=== PATIENT | female | born 1945 | race Caucasian/White ===

== ENCOUNTER 2016-09-26 19:17 | Inpatient (IN) | payer OTHER, MEDICAID ==
[~2016-09-26] VITALS: Ht 167.6 cm; Wt 127.3 kg
[~2016-09-26 19:17] MED LIST: ALLO100T PO; ASPI-664 PO; CARI350T29 PO; CARV6.2579 PO; CHOL2000 PO; CLON0.5T4 PO; FURO20TA3 PO; GEMF600T60 PO; GLYB5TAB3 PO; HYDR-762 PO; HYDR10TA36 PO; LEVO175T38 PO; LISI20TA11 PO; MULT-552 PO; OMEP20CA16 PO; PIOG15TA4 PO; SERT-165 PO
[2016-09-26] MEDS ORDERED: SOD CHLORIDE 0.9% 1,000 ML IV STA (19:57)
[2016-09-26] MEDS ORDERED: ONDANSETRON 4 MG INJ IV STA (19:57)
[2016-09-26] MEDS ORDERED: morphine 2 MG INJ IV STA (19:57)
[2016-09-26 20:22] LABS: ADD SCAN DIFF NO
[2016-09-26 20:26] LABS: BASOPHILS % 0.4 % (0.0-2.0); EOSINOPHILS # 0.4 10^3/ul (0.0-0.5); EOSINOPHILS % 5.1 % (0.0-7.0); HEMATOCRIT 33.9 % (37.0-47.0); LYMPHOCYTES # 1.3 10^3/ul (0.8-2.9); LYMPHOCYTES % 17.9 % (15.0-51.0); MEAN CORPUSCULAR HEMOGLOBIN 29.4 pg (29.0-33.0); MEAN CORPUSCULAR HGB CONC 32.4 g/dl (32.0-37.0); MEAN CORPUSCULAR VOLUME 90.6 fl (82.0-101.0); MEAN PLATELET VOLUME 10.8 fl (7.4-10.4); MONOCYTE # 0.6 10^3/ul (0.3-0.9); MONOCYTES % 8.2 % (0.0-11.0); NEUTROPHIL # 4.9 10^3/ul (1.6-7.5); NEUTROPHILS % 68.3 % (39.0-77.0); PLATELET COUNT 199 10^3/UL (140-415); RED BLOOD COUNT 3.74 10^6/ul (4.20-5.40); RED CELL DISTRIBUTION WIDTH 14.2 % (11.5-14.5); WHITE BLOOD COUNT 7.1 10^3/ul (4.8-10.8)
[2016-09-26 20:37] LABS: ALANINE AMINOTRANSFERASE 20 IU/L (13-69); ALBUMIN 3.7 g/dl (3.3-4.9); ALBUMIN/GLOBULIN RATIO 1.19; ALKALINE PHOSPHATASE 105 IU/L (42-121); ANION GAP 18 (8-16); ASPARTATE AMINO TRANSFERASE 15 IU/L (15-46); BLOOD UREA NITROGEN 103 mg/dl (7-20); CALCIUM 8.7 mg/dl (8.4-10.2); CARBON DIOXIDE 23 mmol/L (21-31); CHLORIDE 94 mmol/L (97-110); CREATININE 6.65 mg/dl (0.44-1.00); POTASSIUM 5.8 mmol/L (3.5-5.1); SODIUM 129 mmol/L (135-144); TOTAL PROTEIN 6.8 g/dl (6.1-8.1)
[2016-09-26 20:47] LABS: GLUCOSE 481 mg/dl (70-220)
[2016-09-26 20:57] LABS: TROPONIN-I < 0.012 ng/ml (0.00-0.12)
[2016-09-26] MEDS ORDERED: INSULIN LISPRO 100 UNIT/ML VIAL SC STA (21:12)
[2016-09-26 21:29] LABS: ADD UMIC YES; URINE BILIRUBIN (Dip) NEGATIVE (NEGATIVE); URINE BLOOD (Dip) 1+ (NEGATIVE); URINE COLOR LT. YELLOW (YELLOW); URINE KETONES (Dip) NEGATIVE (NEGATIVE); URINE LEUKOCYTE ESTERASE (Dip) 3+ (NEGATIVE); URINE NITRITE (Dip) NEGATIVE (NEGATIVE); URINE TOTAL PROTEIN (Dip) 2+ (NEGATIVE); URINE UROBILINOGEN (Dip) 0.2 E.U./dL (0.1-1.0)
[2016-09-26] MEDS ORDERED: SOD CHLORIDE 0.9% 1,000 ML IV ONE (21:30)
--- NOTE | 2016-09-26 21:37 | RADRPT ---
PROCEDURE: CT brain without contrast CLINICAL INDICATION: Dizziness. Headaches TECHNIQUE: A CT of the brain was performed on a GE [address] scanner utilizing axial sections fr om the skull base through the vertex without contrast. The exam CDTIvol = 42.58 mGy and DLP = 813. 64 mGy-cm. COMPARISON: CT and MRI exam 12/23/2015 FINDINGS: Linear hyperdense area within the left sylvian fissure presumably in a branch of the left middle cer ebral artery is again noted, less extensive than on the previous study. Areas of hypodensity consis tent with encephalomalacia in the left insular region and left temporal lobe correlate with the prev iously seen ischemic infarct. No acute intracranial hemorrhage is identified. There is no mass eff ect or midline shift. No extra-axial fluid collection is seen. The ventricles and sulci are mildly enlarged, compatible with generalized volume loss. There are mild areas of decreased attenuation in the periventricular and deep white matter, suggestive of chronic small vessel ischemic changes. Gr ay-white differentiation is preserved. No density alteration in the kat or cerebellum is identifie d the fourth ventricle is midline. Atherosclerotic calcifications of the proximal intracranial maximino gavino are noted. The osseous structures are unremarkable. The mastoid air cells and visualized paranasal sinuses are clear. RPTAT:HJJR IMPRESSION: 1. No evidence for acute intracranial abnormality or mass effect. 2. 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 3. Hyperdensity within the left sylvian fissure presumably chronic left middle cerebral artery intr a-arterial thrombus is again noted, less extensive than on the previous exam of 12/23/2015. Physician Ranjana Date Time Electronically viewed and signed by Physician Ranjana on 09/26/2016 21:36 /
[2016-09-26 21:39] LABS: BACTERIA,URINE MODERATE
[2016-09-26] MEDS ORDERED: DOCU-159 PO (22:15)
[2016-09-26] MEDS ORDERED: HYDR-3670 PO (22:16)
[2016-09-26] MEDS ORDERED: NOVO3I SC (22:24)
[2016-09-26] MEDS ORDERED: LEVEM SC (22:27)
[2016-09-26] MEDS ORDERED: FURO40TA4 PO (22:28)
[2016-09-26] MEDS ORDERED: ATOR80TA75 PO (22:29)
[2016-09-26] MEDS ORDERED: MULT1CAP27 PO (22:31)
[2016-09-26] MEDS ORDERED: NITR0.4T6 SL (22:32)
[2016-09-26] MEDS ORDERED: PANT40TA4 PO (22:34)
[2016-09-26] MEDS ORDERED: TIOT18CA INHALATION (22:35)
[2016-09-26] MEDS ORDERED: BUDE6HFA INHALATION (22:36)
[2016-09-26] MEDS ORDERED: ACET325T45 PO (22:37)
[2016-09-26] MEDS ORDERED: ASCO-219 PO (22:38)
[2016-09-26] MEDS ORDERED: NA POLYST SULFON 15 GM/60 ML BTL PO ONE (23:00)
--- NOTE | 2016-09-26 23:59 | ERD ---
ER Documentation Chief Complaint Date/Time DATE: 09/26/16 TIME: 23:48 Chief Complaint MASSIMO RA c/o dizziness X3 days,diarrhea started today,abd pain HPI 71-year-old female presents emergency room with increasing dizziness for 3 days as well as some diarrhea and abdominal pain. She denies any fevers and chills. Denies chest pain and shortness of breath. There is nonbloody. The dizziness is described as a lightheadedness ROS All systems reviewed and are negative except as per history of present illness. Medications Home Meds Active Scripts Carvedilol* (Carvedilol*) 6.25 Mg Tablet, 6.25 MG PO BID for 30 Days, TAB Prov:DWAINE BLACK 11/17/15 Reported Medications Ascorbic Acid (C-500) 500 Mg Tablet, 500 MG PO BID for WOUND MANAGEMENT, TAB 09/26/16 Acetaminophen* (Acetaminophen*) 325 Mg Tablet, 325 MG PO Q4H Y for PAIN AND OR ELEVATED TEMP, #30 TAB 09/26/16 Budesonide-Formoterol Fumarate* (Symbicort*) 160-4.5 Hfa.aer.ad, 1 PUFF INHALATION BID, #1 EACH 09/26/16 Tiotropium [place]* (Spiriva*) 18 Mcg Cap.w.dev, 1 CAP INHALATION DAILY, #30 CAP 09/26/16 Pantoprazole* (Pantoprazole*) 40 Mg Tablet.dr, 40 MG PO AC BREAKFAST, TAB 09/26/16 Nitroglycerin* (Nitroglycerin* SL) 0.4 Mg Tab.subl, 0.4 MG SL Q5MIN Y for CHEST PAIN, BOTTLE 09/26/16 Multivitamin with Minerals (Myvitalife) 1 Each Capsule, 1 EACH PO, CAP 09/26/16 Atorvastatin* (Atorvastatin*) 80 Mg Tablet, 80 MG PO QHS for HYPERLIPIDEMIA, # 30 TAB 09/26/16 Furosemide* (Furosemide*) 40 Mg Tablet, 40 MG PO DAILY for CHF, TAB 09/26/16 Insulin Detemir (Levemir) 100 Unit/1 Ml Vial, 30 UNIT SC DAILY, VIAL 09/26/16 Insulin Aspart* (Novolog Insulin Pen*) 100 Unit/Ml Soln, 0 SC .SLIDING SCALE AC , EA 150-199=2 UNITS;200-249=3 UNITS;250-299=5 UNITS; 300-349= 7 UNITS ABOVE 349=10UNITS CALL MD IF BS <60 OR >400 subcutaneosly before meals and at bedtime related to TYPE 2 DIABETES MELLIYUS WITHOUT COMPLICATIONS (E11.9) FSBS CHECK AC MEALSAND HS 09/26/16 Hydralazine Hcl* (Hydralazine Hcl*) 10 Mg Tablet, 10 MG PO Q8 for HYPERTENSION, #90 TAB 09/26/16 Docusate Sodium* (Docusate Sodium*) 100 Mg Capsule, 100 MG PO BID for CONSTIPATION, #60 CAP 09/26/16 Cholecalciferol* (Vitamin D3*) 2,000 Unit Cap, 2000 UNIT PO DAILY, CAP 12/23/15 Allopurinol* (Allopurinol*) 100 Mg Tablet, 100 MG PO DAILY, TAB 12/23/15 Sertraline Hcl* (Sertraline Hcl*) 100 Mg Tablet, 100 MG PO DAILY, #30 TAB 12/23/15 Lisinopril* (Lisinopril*) 20 Mg Tablet, 20 MG PO DAILY, #30 TAB 12/23/15 Hydrocodone Bit-Acetaminophen* ([place]*) 10-325 Mg Tablet, 1 TAB PO TID Y for PAIN, TAB 12/23/15 Aspirin (Aspirin) 81 Mg Tablet.dr, 81 MG PO DAILY 05/07/13 Omeprazole* (Omeprazole*) 20 Mg Capsule.dr, 20 MG PO DAILY 05/07/13 Discontinued Reported Medications Multivitamins* (Once Daily*) 1 Tab Tablet, 1 TAB PO DAILY, TAB 12/23/15 Glyburide* (Glyburide*) 5 Mg Tablet, 5 MG PO BID, #60 TAB 12/23/15 Levothyroxine Sodium* (Levoxyl*) 175 Mcg Tablet, 175 MCG PO BEFORE BREAKFAST, # 30 TAB 12/23/15 Clonazepam* (Clonazepam*) 0.5 Mg Tablet, 0.5 MG PO BID, TAB 12/23/15 Gemfibrozil* (Gemfibrozil*) 600 Mg Tablet, 600 MG PO DAILY, TAB 12/23/15 Carisoprodol* (Carisoprodol*) 350 Mg Tablet, 350 MG PO Q8 Y for MUSCLE SPASMS, TAB 12/23/15 Pioglitazone Hcl* (Actos*) 15 Mg Tablet, 15 MG PO DAILY 05/07/13 Discontinued Scripts Hydralazine Hcl* (Apresoline*) 10 Mg Tab, 10 MG PO BID for 30 Days, TAB Prov:DWAINE BLACK 11/17/15 Furosemide* (Furosemide*) 20 Mg Tablet, 20 MG PO DAILY for 30 Days, TAB Prov:DWAINE BLACK 11/17/15 Allergies Allergies: Coded Allergies: No Known Drug Allergy (Verified Allergy, Unknown, 09/26/16) PMhx/Soc History of Surgery: Yes (CATARACT SG, .) Anesthesia Reaction: No Hx 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 Disorder: No Hx Respiratory Disorders: Yes (COPD, emphysema) Hx Cardiac Disorders: Yes (CHF) Hx Psychiatric Problems: Yes (depression) Hx Miscellaneous Medical Probl: Yes (MORBIDLY OBESE,diabetes) Hx Alcohol Use: Yes (one can/ month) Hx Substance Use: No Hx Tobacco Use: Yes (2 packs/day) Smoking Status: Current every day smoker Physical Exam Vitals Vital Signs Date Time Temp Pulse Resp B/P Pulse Ox O2 Delivery O2 Flow Rate FiO2 09/26/16 22:26 64 26 119/46 100 Nasal Cannula 3.0 09/26/16 21:00 68 26 115/102 96 Nasal Cannula 3.0 09/26/16 19:33 77 21 99/41 99 Room Air 09/26/16 19:27 97.7 76 18 97/52 99 Physical Exam Const: [] No acute distress Head: Atraumatic Eyes: Normal Conjunctiva ENT: Normal External Ears, Nose and Mouth. Neck: Full range of motion..~ No meningismus. Resp: Clear to auscultation bilaterally Cardio: Regular rate and rhythm, no murmurs Abd: Soft, mild generalized abdominal pain, non distended. Normal bowel sounds Skin: No petechiae or rashes Back: No midline or flank tenderness Ext: No cyanosis, or edema Neur: Awake and alert and oriented 3, no focal deficits. Psych: Normal Mood and Affect Result Diagram: 09/26/16201409/26/162014 Results 24 hrs Laboratory Tests Test 09/26/16 20:15 09/26/16 21:15 White Blood Count 7.110^3/ul Red Blood Count 3.7410^6/ul Hemoglobin 11.0g/dl Hematocrit 33.9% Mean Corpuscular Volume 90.6fl Mean Corpuscular Hemoglobin 29.4pg Mean Corpuscular Hemoglobin Concent 32.4g/dl Red Cell Distribution Width 14.2% Platelet Count 56336^3/UL Mean Platelet Volume 10.8fl Neutrophils % 68.3% Lymphocytes % 17.9% Monocytes % 8.2% Eosinophils % 5.1% Basophils % 0.4% Nucleated Red Blood Cells % 0.0/100WBC Neutrophils # 4.910^3/ul Lymphocytes # 1.310^3/ul Monocytes # 0.610^3/ul Eosinophils # 0.410^3/ul Basophils # 0.010^3/ul Nucleated Red Blood Cells # 0.010^3/ul Sodium Level 129mmol/L Potassium Level 5.8mmol/L Chloride Level 94mmol/L Carbon Dioxide Level 23mmol/L Anion Gap 18 Blood Urea Nitrogen 103mg/dl Creatinine 6.65mg/dl Glucose Level 481mg/dl Calcium Level 8.7mg/dl Total Bilirubin 0.0mg/dl Direct Bilirubin 0.00mg/dl Indirect Bilirubin 0.0mg/dl Aspartate Amino Transf (AST/SGOT) 15IU/L Alanine Aminotransferase (ALT/SGPT) 20IU/L Alkaline Phosphatase 105IU/L Troponin I < 0.012ng/ml Total Protein 6.8g/dl Albumin 3.7g/dl Globulin 3.10g/dl Albumin/Globulin Ratio 1.19 Lipase 81U/L Urine Color LT. YELLOW Urine Clarity TURBID Urine pH 5.0 Urine Specific [place] 1.015 Urine Ketones NEGATIVE Urine Nitrite NEGATIVE Urine Bilirubin NEGATIVE Urine Urobilinogen 0.2 E.U./dL Urine Leukocyte Esterase 3+ Urine Microscopic RBC 5-10/HPF Urine Microscopic WBC >200/HPF Urine Epithelial Cells FEW Urine Bacteria MODERATE Urine Hemoglobin 1+ Urine Glucose 0.1%% Urine Total Protein 2+ Current Medications Medications (Trade) Dose Ordered Sig/Marcie Route PRN Reason Start Time Stop Time Status Last Admin Dose Admin Sodium Chloride (NS) 1,000 ml @ 1,000 mls/hr Q1H STAT IV 09/26/16 19:57 09/26/16 20:56 DC 09/26/16 20:31 Morphine Sulfate (morphine) 2 mg ONCE STAT IV 09/26/16 19:57 09/26/16 19:58 DC 09/26/16 20:32 Ondansetron HCl 4 mg 4 mg ONCE STAT IV 09/26/16 19:57 09/26/16 19:58 DC 09/26/16 20:31 Sodium Chloride (NS) 1,000 ml @ 1,000 mls/hr Q1H ONCE IV 09/26/16 21:30 09/26/16 21:30 DC Insulin Human Lispro (Humalog) 6 unit ONCE STAT SC 09/26/16 21:12 09/26/16 21:18 DC 09/26/16 21:32 Sodium Polystyrene Sulfonate (Kayexalate) 30 gm ONCE ONCE PO 09/26/16 23:00 09/26/16 23:01 DC Procedures/MDM Acute uremia with acute kidney injury and pyelonephritis.. She has a very high BUN of 100. Also has some hyperkalemia without any EKG changes. Denies any GI bleed. After initial history taken she stated that she forgot to mention that she had a headache., Because her coming dizziness ordered a head CT which was negative for any acute process. She'll need to be admitted for nephrology evaluation and likely dialysis very soon although the need is not emergent currently. Also has a very high blood sugar was treated with a normal saline as well as lispro insulin subcutaneously. She has hyperkalemia with no EKG changes was given Kayexalate. Pain is treated with morphine and worked well. Patient was capitated to [facility] although and informed her that she would be transferred she said that she refuses. Registration is talking with an chance , and will get back to the patient. Signing out her final disposition and she made a being admitted to this hospital which case the oncoming physician will make the call to the hospitalist. Otherwise she will be admitted. EKG interpretation: No sinus rhythm rate of 60, normal axis, no ST-T wave changes concerning for acute ischemia, low voltage, single PVC, normal intervals. Departure Diagnosis: Primary Impression: Acute kidney injury Additional Impressions: Acute uremia Headache Abdominal pain Complicated UTI (urinary tract infection) Hyperglycemia due to type 2 diabetes mellitus Anemia Condition: Serious RADHIKA RUIZ DO Sep 26, 2016 23:59
[2016-09-27] VITALS (9 sets, daily range): BP systolic 78–106; BP diastolic 41–51; PULSE 56–67; RESP 14–18; TEMP 98; Ht 167.6 cm; Wt 127.3 kg
[2016-09-27] MEDS ORDERED: SOD CHLORIDE 0.9% 1,000 ML IV ONE
[2016-09-27] MEDS ORDERED: CEFEPIME 1GM/50 ML (PMX) 50 ML IVPB ONE
--- NOTE | 2016-09-27 01:42 | EN ---
Date/Time of Note Date/Time of Note DATE: 09/27/16 TIME: 01:41 ER Progress Note Discuss case with IPA physician Dr. Richard. Her on-call physician, recommended admitting patient to panel physician at [facility]. Hospitalist made aware. INNA ARAGON Sep 27, 2016 01:42
--- NOTE | 2016-09-27 03:12 | HP ---
Date/Time of Note Date/Time of Note DATE: 09/27/16 TIME: 03:12 Assessment/Plan VTE Prophylaxis VTE Prophylaxis Intervention: heparin Lines/Catheters Urinary Cath still in place: Yes Reason Cath still needed: urinary retention, other (indicate) (Acute Kidney Injury with Acute Uremia) Assessment/Plan Assessment/Plan 1) Acute kidney injury, Cr 7 - Admit to Med/Surg - CONSULT: Nephrology - Dr. Messina - Dialysis suspected. 2) Acute uremia, BUN 103, 3) Complicated UTI (urinary tract infection) - IV Antibiotics - Await Urine Culture 4) Abdominal pain and diarrhea today, possibly due to UTI - Treat as above 5) Hyperglycemia due to type 2 diabetes mellitus - Diabetic Diet/Renal - Accu Chek AC and HS - Mild Insulin Sliding Scale 6) Hyperkalemia - Treated with Kayexalate in the ED 7) Anemia, Normochromic, Normocytic, Hgb = 11 8) Headache - Tylenol prn HPI/ROS Admit Date/Time Admit Date/Time 09/27/16 0139 Hx of Present Illness 71-year-old female presents emergency room, via ambulance, with increasing dizziness for 3 days as well as some diarrhea and abdominal pain today. No melena or hematochezia. She denies any fevers and chills. Denies chest pain and shortness of breath. There is nonbloody. The dizziness is described as a lightheadedness ER Course per ER Physician: Acute uremia with acute kidney injury and pyelonephritis.. She has a very high BUN of 100. Also has some hyperkalemia without any EKG changes. Denies any GI bleed. After initial history taken she stated that she forgot to mention that she had a headache., Because her coming dizziness ordered a head CT which was negative for any acute process. She'll need to be admitted for nephrology evaluation and likely dialysis very soon although the need is not emergent currently. Also has a very high blood sugar was treated with a normal saline as well as lispro insulin subcutaneously. She has hyperkalemia with no EKG changes was given Kayexalate. Pain is treated with morphine and worked well. Patient was capitated to [facility] although and informed her that she would be transferred she said that she refuses. Registration is talking with an chance, and will get back to the patient. Signing out her final disposition and she made a being admitted to this hospital which case the oncoming physician will make the call to the hospitalist. Otherwise she will be admitted. ROS General: Admits: Denies: Fever, Chills, Poor Appetite, Generalized Body Aches Eyes: Admits: Denies: Blurry Vision, Double Vision HENT: Admits: Denies: Ear Pain/Pressure, Runny/Stuffy Nose, Sore Throat Cardiovascular: Admits: Denies: Chest Pain, Palpitations, Leg Swelling Pulmonary: Admits: Denies: Cough, Wheeze, Shortness of Breath Gastrointestinal: Admits: Abdominal Pain, Diarrhea Denies: Nausea, Vomiting, Blood in Stool, Black- Colored Stool Urogenital: Admits: Denies: Burning with Urination, Urinary Frequency, Blood in Urine Musculoskeletal: Admits: Denies: Joint Pain, Joint Swelling, Muscle Pain 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: Admits: Headache, mild, Dizziness, Denies: Numbness, Tingling, Shooting Pains Integumentary: Admits: Denies: Rash, Itch PMH/Family/Social Past Medical History COPD; Emphysema; CHF; Depression; Morbid Obesity; Diabetes Past Surgical History CATARACT SG, Anesthesia Reaction: No Hx 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 Disorder: No Hx Alcohol Use: Yes (one can/ month) Hx Substance Use: No Hx Tobacco Use: Yes (2 packs/day) Smoking Status: Current every day smoker Past Surgical Hx: no surgical history Social History Alcohol Use: rarely Smoking Status: Current every day smoker (2 ppd) Drug Use: none Exam/Review of Systems Vital Signs Vitals Vital Signs Date Time Temp Pulse Resp B/P Pulse Ox O2 Delivery O2 Flow Rate FiO2 09/27/16 02:11 76 17 97/69 96 Nasal Cannula 3.0 09/26/16 19:27 97.7 Exam Exam General: Morbidly obese female, alert, in no acute distress. Eyes: Sclera White, EOMI HENT: Normocephalic/Atraumatic, External Ears/Nose Normal, Moist Mucus Membranes Neck: Supple, Trachea Midline Cardiovascular: Normal Rate, Regular Rhythm, Normal S1 and S2, No Murmur, No Extra Sounds. Radial pulse +2/4. No pedal Edema. Pulmonary: Clear to Auscultation Bilaterally, Normal Respiratory Effort, No Rales, Rhonchi or Wheezes Gastrointestinal: Normoactive Bowel Sounds, Soft, mild generalized abdominal pain. No guarding or rebound. Non distended. Palpation of internal organs difficult due to body habitus. Urogenital: Deferred Musculoskeletal: Normal Muscle Bulk and Tone 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: CN II - XII Grossly Intact, Non-Focal, Speech Normal Integumentary: Normal Moisture and Temperature, Good Turgor, No Jaundice, No Rash Lymphatic: No Cervical Lymphadenopathy Psychiatric: Appropriate Mood and Affect, Good Eye Contact Labs Result Diagram: 09/26/16201409/26/162014 Medications Medications Home Meds Active Scripts Carvedilol* (Carvedilol*) 6.25 Mg Tablet, 6.25 MG PO BID for 30 Days, TAB Prov:DWAINE BLACK 11/17/15 Reported Medications Ascorbic Acid (C-500) 500 Mg Tablet, 500 MG PO BID for WOUND MANAGEMENT, TAB 09/26/16 Acetaminophen* (Acetaminophen*) 325 Mg Tablet, 325 MG PO Q4H Y for PAIN AND OR ELEVATED TEMP, #30 TAB 09/26/16 Budesonide-Formoterol Fumarate* (Symbicort*) 160-4.5 Hfa.aer.ad, 1 PUFF INHALATION BID, #1 EACH 09/26/16 Tiotropium [place]* (Spiriva*) 18 Mcg Cap.w.dev, 1 CAP INHALATION DAILY, #30 CAP 09/26/16 Pantoprazole* (Pantoprazole*) 40 Mg Tablet.dr, 40 MG PO AC BREAKFAST, TAB 09/26/16 Nitroglycerin* (Nitroglycerin* SL) 0.4 Mg Tab.subl, 0.4 MG SL Q5MIN Y for CHEST PAIN, BOTTLE 09/26/16 Multivitamin with Minerals (Myvitalife) 1 Each Capsule, 1 EACH PO, CAP 09/26/16 Atorvastatin* (Atorvastatin*) 80 Mg Tablet, 80 MG PO QHS for HYPERLIPIDEMIA, # 30 TAB 09/26/16 Furosemide* (Furosemide*) 40 Mg Tablet, 40 MG PO DAILY for CHF, TAB 09/26/16 Insulin Detemir (Levemir) 100 Unit/1 Ml Vial, 30 UNIT SC DAILY, VIAL 09/26/16 Insulin Aspart* (Novolog Insulin Pen*) 100 Unit/Ml Soln, 0 SC .SLIDING SCALE AC , EA 150-199=2 UNITS;200-249=3 UNITS;250-299=5 UNITS; 300-349= 7 UNITS ABOVE 349=10UNITS CALL MD IF BS <60 OR >400 subcutaneosly before meals and at bedtime related to TYPE 2 DIABETES MELLIYUS WITHOUT COMPLICATIONS (E11.9) FSBS CHECK AC MEALSAND HS 09/26/16 Hydralazine Hcl* (Hydralazine Hcl*) 10 Mg Tablet, 10 MG PO Q8 for HYPERTENSION, #90 TAB 09/26/16 Docusate Sodium* (Docusate Sodium*) 100 Mg Capsule, 100 MG PO BID for CONSTIPATION, #60 CAP 09/26/16 Cholecalciferol* (Vitamin D3*) 2,000 Unit Cap, 2000 UNIT PO DAILY, CAP 12/23/15 Allopurinol* (Allopurinol*) 100 Mg Tablet, 100 MG PO DAILY, TAB 12/23/15 Sertraline Hcl* (Sertraline Hcl*) 100 Mg Tablet, 100 MG PO DAILY, #30 TAB 12/23/15 Lisinopril* (Lisinopril*) 20 Mg Tablet, 20 MG PO DAILY, #30 TAB 12/23/15 Hydrocodone Bit-Acetaminophen* ([place]*) 10-325 Mg Tablet, 1 TAB PO TID Y for PAIN, TAB 12/23/15 Aspirin (Aspirin) 81 Mg Tablet.dr, 81 MG PO DAILY 05/07/13 Omeprazole* (Omeprazole*) 20 Mg Capsule.dr, 20 MG PO DAILY 05/07/13 Discontinued Reported Medications Multivitamins* (Once Daily*) 1 Tab Tablet, 1 TAB PO DAILY, TAB 12/23/15 Glyburide* (Glyburide*) 5 Mg Tablet, 5 MG PO BID, #60 TAB 12/23/15 Levothyroxine Sodium* (Levoxyl*) 175 Mcg Tablet, 175 MCG PO BEFORE BREAKFAST, # 30 TAB 12/23/15 Clonazepam* (Clonazepam*) 0.5 Mg Tablet, 0.5 MG PO BID, TAB 12/23/15 Gemfibrozil* (Gemfibrozil*) 600 Mg Tablet, 600 MG PO DAILY, TAB 12/23/15 Carisoprodol* (Carisoprodol*) 350 Mg Tablet, 350 MG PO Q8 Y for MUSCLE SPASMS, TAB 12/23/15 Pioglitazone Hcl* (Actos*) 15 Mg Tablet, 15 MG PO DAILY 05/07/13 Current Medications Medications (Trade) Dose Ordered Sig/Marcie Route PRN Reason Start Time Stop Time Status Last Admin Dose Admin Sodium Chloride (NS) 1,000 ml @ 1,000 mls/hr Q1H STAT IV 09/26/16 19:57 09/26/16 20:56 DC 09/26/16 20:31 Morphine Sulfate (morphine) 2 mg ONCE STAT IV 09/26/16 19:57 09/26/16 19:58 DC 09/26/16 20:32 Ondansetron HCl 4 mg 4 mg ONCE STAT IV 09/26/16 19:57 09/26/16 19:58 DC 09/26/16 20:31 Sodium Chloride (NS) 1,000 ml @ 1,000 mls/hr Q1H ONCE IV 09/26/16 21:30 09/26/16 21:30 DC Insulin Human Lispro (Humalog) 6 unit ONCE STAT SC 09/26/16 21:12 09/26/16 21:18 DC 09/26/16 21:32 Sodium Polystyrene Sulfonate (Kayexalate) 30 gm ONCE ONCE PO 09/26/16 23:00 09/26/16 23:01 DC Procedures Procedures Laboratory Tests Test 09/26/16 20:15 09/26/16 21:15 White Blood Count 7.110^3/ul Red Blood Count 3.7410^6/ul Hemoglobin 11.0g/dl Hematocrit 33.9% Mean Corpuscular Volume 90.6fl Mean Corpuscular Hemoglobin 29.4pg Mean Corpuscular Hemoglobin Concent 32.4g/dl Red Cell Distribution Width 14.2% Platelet Count 19809^3/UL Mean Platelet Volume 10.8fl Neutrophils % 68.3% Lymphocytes % 17.9% Monocytes % 8.2% Eosinophils % 5.1% Basophils % 0.4% Nucleated Red Blood Cells % 0.0/100WBC Neutrophils # 4.910^3/ul Lymphocytes # 1.310^3/ul Monocytes # 0.610^3/ul Eosinophils # 0.410^3/ul Basophils # 0.010^3/ul Nucleated Red Blood Cells # 0.010^3/ul Sodium Level 129mmol/L Potassium Level 5.8mmol/L Chloride Level 94mmol/L Carbon Dioxide Level 23mmol/L Anion Gap 18 Blood Urea Nitrogen 103mg/dl Creatinine 6.65mg/dl Glucose Level 481mg/dl Calcium Level 8.7mg/dl Total Bilirubin 0.0mg/dl Direct Bilirubin 0.00mg/dl Indirect Bilirubin 0.0mg/dl Aspartate Amino Transf (AST/SGOT) 15IU/L Alanine Aminotransferase (ALT/SGPT) 20IU/L Alkaline Phosphatase 105IU/L Troponin I < 0.012ng/ml Total Protein 6.8g/dl Albumin 3.7g/dl Globulin 3.10g/dl Albumin/Globulin Ratio 1.19 Lipase 81U/L Urine Color LT. YELLOW Urine Clarity TURBID Urine pH 5.0 Urine Specific [place] 1.015 Urine Ketones NEGATIVE Urine Nitrite NEGATIVE Urine Bilirubin NEGATIVE Urine Urobilinogen 0.2 E.U./dL Urine Leukocyte Esterase 3+ Urine Microscopic RBC 5-10/HPF Urine Microscopic WBC >200/HPF Urine Epithelial Cells FEW Urine Bacteria MODERATE Urine Hemoglobin 1+ Urine Glucose 0.1%% Urine Total Protein 2+ EKG: Interpretation by MATT Lamb - Normal sinus rhythm rate of 60, normal axis, no ST-T wave changes concerning for acute ischemia, low voltage, single PVC, normal intervals PROCEDURE: CT brain without contrast CLINICAL INDICATION: Dizziness. Headaches COMPARISON: CT and MRI exam 12/23/2015 IMPRESSION: 1. No evidence for acute intracranial abnormality or mass effect. 2. 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 3. 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 ÁLVARO LING DO Sep 27, 2016 03:12
[2016-09-27] MEDS ORDERED: METOCLOPRAMIDE 10 MG INJ IV PRN (03:30)
[2016-09-27] MEDS ORDERED: NACL 0.9% 3 ML SYG IV SCH (03:30)
[2016-09-27] MEDS ORDERED: GLUCOSE GEL 15 GRAM TUBE PO PRN ×2 (04:00)
[2016-09-27] MEDS ORDERED: DEXTROSE 50% 50 ML SYRINGE IV PRN ×2 (04:00)
[2016-09-27] MEDS ORDERED: GLUCOSE GEL 15 GRAM TUBE BUCCAL PRN (04:00)
[2016-09-27] MEDS ORDERED: GLUCAGON 1 MG INJ IM PRN (04:00)
[2016-09-27] MEDS ORDERED: morphine 2 MG INJ IV ONE ×2 (04:00)
--- NOTE | 2016-09-27 05:27 | RADRPT ---
PROCEDURE: US Renal CLINICAL INDICATION: Acute renal injury TECHNIQUE: Multiple sonographic images of the kidneys and bladder were obtained. Evaluation of th e kidneys and bladder was performed as well with morales scale and color and Doppler evaluation using a curved array transducer. The images were reviewed on a high-resolution PACS workstation. COMPARISON: No prior studies are available for comparison. FINDINGS: The right kidney measures 9.4 cm in length. The left kidney measures 9.1 cm in length. The renal par enchyma demonstrates increased echogenicity. There is bilateral thinning of the renal cortex. There is no mass, calculus, or obstructive uropathy. No perinephric fluid collection is seen. The bladder is under distended, but otherwise unremarkable. IMPRESSION: Atrophic, echogenic kidneys, consistent with medical renal disease. RPTAT: HH .Millicent Muir MD, Date Time Electronically viewed and signed by .Millicent Muir MD, on 09/27/2016 05:27 .G/
[2016-09-27] MEDS ORDERED: FAMOTIDINE 20 MG TAB PO SCH (09:00)
[2016-09-27] MEDS: FAMOTIDINE 20 MG TAB PO SCH (09:55)
[2016-09-27] MEDS: HEPARIN 5,000 UNIT/0.5 ML VIAL SC SCH ×3 (09:55→21:58)
[2016-09-27 11:43] LABS: ADD SCAN DIFF NO
--- NOTE | 2016-09-27 11:45 | CONS ---
DATE OF ADMISSION: 09/27/2016 DATE OF CONSULTATION: 09/27/2016 TYPE OF CONSULTATION: Nephrology. REASON FOR CONSULTATION: Acute kidney injury. PHYSICIAN REQUESTING CONSULT: Dr. Cazares. HISTORY OF PRESENT ILLNESS: This is a 71-year-old female with a past medical history of chronic kid smiley disease stage IV with a baseline creatinine around 2.5 mg/dl, a history of CHF, cardiomyopathy w ith ejection fraction 45%, history of COPD, CVA, diabetes, dyslipidemia, hypothyroidism who presents to [facility] with complaints of dizziness x3 days, diarrhea, abdominal pain. T he patient was brought in by paramedics. Upon arrival, the patient had laboratory data drawn, which showed a sodium 129, potassium 5.8, chloride 94, BUN of 103, creatinine 6.65 with a glucose of 481. The patient in the emergency room had a CT scan of the brain which showed no acute findings, a laurie al ultrasound which showed evidence of atrophic echogenic kidneys. The patient in the emergency na m was given IV morphine, Pepcid, IV fluids, antibiotic therapy and admitted to telemetry. In terms of the patient's renal history, the patient has a baseline creatinine around 2.5 to 3 mg/dL , which gives an estimated GFR around 20 mL per minute. Patient on this admission, his creatinine 6 .65 mg/dL. The patient currently is lethargic, unable to give adequate history. I attempted to con tact the patient's daughter who was not available at this time. There have been reports of diarrhea . The patient denies any frothy urine. Denies any rashes, does admit to falling down. HOME MEDICATIONS: Did include diuretic, Lasix and lisinopril. No other events recorded. PAST MEDICAL HISTORY: As stated above, history of chronic kidney disease stage IV, history of cardi omyopathy, COPD, CVA, hypertension, dyslipidemia, hypothyroidism. PAST SURGICAL HISTORY: Cataract surgery, . FAMILY HISTORY: Noncontributory. SOCIAL HISTORY: Positive for tobacco use. ALLERGIES: NO KNOWN DRUG ALLERGIES. MEDICATIONS: The patient's medications have been reviewed. REVIEW OF SYSTEMS: A 14-point review of systems was conducted. Pertinent positives in HPI, otherwi se negative. PHYSICAL EXAMINATION: VITAL SIGNS: Blood pressure is 102/45, respiration 18, pulse 71, temperature 98.0. HEENT: Head is normocephalic. NECK: Supple. HEART: Regular rate. LUNGS: Show diminished breath sounds at the base. ABDOMEN: Soft, nontender to palpation without rebound or guarding. EXTREMITIES: Negative for clubbing, cyanosis. Trace edema. DERMATOLOGIC: No rashes. MUSCULOSKELETAL: No joint effusions. NEUROLOGIC: No obvious focal deficits. LABORATORY DATA: From September 26 shows sodium 129, potassium 5.8, chloride 94, BUN 103, creatinine 6. 65, glucose 481. White count 7.1, hemoglobin 9.0, hematocrit 33.9, platelet count is 199. The patient's urinalysis shows moderate bacteria, greater than 200 WBCs. ASSESSMENT AND PLAN: This is a 71-year-old female who presents with: 1. Nonoliguric acute kidney injury on top of chronic kidney disease stage IV with a baseline creati nine around 2.5 to 3 mg/dL. Etiology may be secondary to volume depletion secondary to diuretic the rapy, gastrointestinal loss, CHRISTINA inhibitor effect, acute tubular necrosis. Low suspicion for acute glomerulonephritis or vasculitis, given patient's clinical presentation. Patient's urinalysis does show pyuria, likely due to urinary tract infection. The patient's renal ultrasound also shows no evidence of obstruction and echogenic kidneys consiste nt with chronic kidney disease. 2. Plan at this point is to repeat the patient's BMP and renal panel. The patient is status post I V hydration. Would recommend to hold diuretic therapy, CHRISTINA inhibitor at this time. We will also ch sven a chest x-ray to see if there is any evidence of pulmonary congestion. Would otherwise continue current treatment plan. Continue IV antibiotics, continue supportive care, renally dose meds. Con tinue gentle IV hydration. If patient's renal function, however, does not improve and patient's hyp erkalemia does not resolve, would consider starting renal replacement therapy. 3. Hyponatremia, etiology is multifactorial secondary to acute kidney injury and hyperglycemia. Re commendation is to repeat renal panel, will recommend to obtain euglycemic status. We will continue to monitor sodium levels closely and limit free water intake. 4. Hyperkalemia. Etiology of acute kidney injury, hyperglycemia. Recommend to start the patient o n insulin to obtain euglycemic status. Will repeat a renal panel. If the potassium levels remain e levated, will consider starting renal replacement therapy. 5. Anemia, likely of chronic disease. Monitor H and H levels. 6. Mineral bone disorder. We will check calcium and phosphorus level. 7. Acute encephalopathy. Etiology is likely multifactorial; uremia, possibly infection. We will c ontinue to monitor mental status closely. Continue treating underlying urinary tract infection. I would consider renal replacement therapy if there is no significant improvement. 8. Urinary tract infection. Continue current antibiotic regimen. 9. Questionable diarrhea. Continue to monitor. 10. Diabetes. Recommend start insulin therapy, Accu-Cheks, insulin sliding scale. Thank Dr. Cazares, for this interesting consult. It will be a pleasure to follow patient with moises dean the hospital course. Dictated By: MARGIE ARRIOLA/TOMMY Conf#: [id number] DID#: [id number]
[2016-09-27 11:46] LABS: BASOPHILS % 0.5 % (0.0-2.0); EOSINOPHILS # 0.4 10^3/ul (0.0-0.5); EOSINOPHILS % 4.8 % (0.0-7.0); HEMOGLOBIN 9.7 g/dl (12.0-16.0); LYMPHOCYTES # 1.8 10^3/ul (0.8-2.9); LYMPHOCYTES % 24.4 % (15.0-51.0); MEAN CORPUSCULAR HGB CONC 31.3 g/dl (32.0-37.0); MEAN CORPUSCULAR VOLUME 92.8 fl (82.0-101.0); MEAN PLATELET VOLUME 10.4 fl (7.4-10.4); MONOCYTES % 13.7 % (0.0-11.0); NEUTROPHIL # 4.1 10^3/ul (1.6-7.5); NEUTROPHILS % 56.3 % (39.0-77.0); PLATELET COUNT 176 10^3/UL (140-415); RED BLOOD COUNT 3.34 10^6/ul (4.20-5.40); RED CELL DISTRIBUTION WIDTH 14.4 % (11.5-14.5); WHITE BLOOD COUNT 7.3 10^3/ul (4.8-10.8)
[2016-09-27] MEDS ORDERED: INSULIN GLARGINE [LANtus] 3 ML PEN SC SCH (12:00)
[2016-09-27] MEDS ORDERED: INSULIN ASPART [NOVOLOG] 3 ML PEN SC SCH (12:00)
[2016-09-27 12:02] LABS: CALCIUM 7.8 mg/dl (8.4-10.2); CREATININE 6.08 mg/dl (0.44-1.00)
[2016-09-27] MEDS: INSULIN ASPART [NOVOLOG] 3 ML PEN SC SCH ×4 (12:47→21:56)
--- NOTE | 2016-09-27 13:08 | RADRPT ---
PROCEDURE: XR Chest. CLINICAL INDICATION: Shortness of breath. TECHNIQUE: Single frontal view. COMPARISON: 12/30/2015. FINDINGS: The lungs are clear. The heart is enlarged. There is calcification in the aorta consistent with atherosclerosis. There is no pleural effusion. There is no pneumothorax. IMPRESSION: 1. Cardiomegaly and atherosclerosis. 2. Clear lungs. RPTAT: QQ .Mukesh Christiansen MD, MD Date Time Electronically viewed and signed by .Mukesh Christiansen MD, MD on 09/27/2016 13:07 .R/
[2016-09-27 13:27] LABS: ADD UMIC YES; URINE BILIRUBIN (Dip) NEGATIVE (NEGATIVE); URINE BLOOD (Dip) 3+ (NEGATIVE); URINE COLOR LT. RED (YELLOW); URINE GLUCOSE (Dip) NEGATIVE (NEGATIVE); URINE KETONES (Dip) NEGATIVE (NEGATIVE); URINE LEUKOCYTE ESTERASE (Dip) 2+ (NEGATIVE); URINE NITRITE (Dip) NEGATIVE (NEGATIVE); URINE TOTAL PROTEIN (Dip) 4+ (NEGATIVE); URINE UROBILINOGEN (Dip) 0.2 E.U./dL (0.1-1.0)
[2016-09-27 13:54] LABS: BACTERIA,URINE FEW
[2016-09-27] MEDS: CEFTRIAXONE 2 GM/50 ML (PMX) 50 ML IVPB SCH (17:50)
[2016-09-28] VITALS (11 sets, daily range): BP systolic 90–116; BP diastolic 42–56; PULSE 62–73; RESP 16–20
[2016-09-28] MEDS: ACCU-CHEK XX SCH (02:00)
[2016-09-28] MEDS: morphine 2 MG INJ IV PRN ×2 (04:02→10:22)
[2016-09-28] MEDS: HEPARIN 5,000 UNIT/0.5 ML VIAL SC SCH ×3 (06:42→22:02)
[2016-09-28] MEDS ORDERED: INSULIN GLARGINE [LANtus] 3 ML PEN SC SCH ×2 (08:00)
[2016-09-28] MEDS: FAMOTIDINE 20 MG TAB PO SCH (08:04)
[2016-09-28 08:07] LABS: ADD SCAN DIFF NO; BASOPHIL # 0.1 10^3/ul (0.0-0.1); BASOPHILS % 0.9 % (0.0-2.0); EOSINOPHILS # 0.3 10^3/ul (0.0-0.5); EOSINOPHILS % 5.8 % (0.0-7.0); HEMATOCRIT 32.3 % (37.0-47.0); HEMOGLOBIN 10.5 g/dl (12.0-16.0); LYMPHOCYTES # 1.5 10^3/ul (0.8-2.9); LYMPHOCYTES % 26.9 % (15.0-51.0); MEAN CORPUSCULAR HEMOGLOBIN 30.2 pg (29.0-33.0); MEAN CORPUSCULAR HGB CONC 32.5 g/dl (32.0-37.0); MEAN CORPUSCULAR VOLUME 92.8 fl (82.0-101.0); MEAN PLATELET VOLUME 10.3 fl (7.4-10.4); MONOCYTE # 0.7 10^3/ul (0.3-0.9); PLATELET COUNT 165 10^3/UL (140-415); RED BLOOD COUNT 3.48 10^6/ul (4.20-5.40); RED CELL DISTRIBUTION WIDTH 14.1 % (11.5-14.5); WHITE BLOOD COUNT 5.5 10^3/ul (4.8-10.8)
[2016-09-28] MEDS: INSULIN ASPART [NOVOLOG] 3 ML PEN SC SCH ×7 (08:08→21:00)
[2016-09-28 08:26] LABS: CALCIUM 7.9 mg/dl (8.4-10.2); POTASSIUM 4.2 mmol/L (3.5-5.1)
[2016-09-28 08:27] LABS: MAGNESIUM 2.2 mg/dl (1.7-2.5); PHOSPHORUS 5.3 mg/dl (2.5-4.9)
[2016-09-28] MEDS: ALBUMIN HUMAN 25% 100 ML IV SCH ×2 (11:55→21:45)
--- NOTE | 2016-09-28 13:54 | PN ---
DATE: 09/28/2016 SUBJECTIVE: The patient remains lethargic but more alert today. Urinary output is improved, no oth er acute events noted. No hemoptysis, hematemesis or hematochezia. OBJECTIVE: VITAL SIGNS: Blood pressure is 103/54, respiration 16, pulse 69, temperature 97.9. I's AND O'S: The patient had 500 in and approximately 1 liter out. HEENT: Head is normocephalic. NECK: Supple. HEART: Regular rate. LUNGS: Show diminished breath sounds at base. ABDOMEN: Soft, nontender to palpation. No rebound or guarding. EXTREMITIES: Negative for clubbing, cyanosis, no edema. DERMATOLOGIC: No rashes. MUSCULOSKELETAL: No joint effusions. NEUROLOGIC: No change in exam. MEDICATIONS: The patient's medications have been reviewed. LABORATORY DATA: Blood cultures are negative x2. Sodium 136, potassium 4.2, chloride 104, BUN 91, creatinine 5.0, phosphorus 5.3. White count 5.5, hemoglobin 10.5, hematocrit 32.3, platelet count i s 165. Patient's renal ultrasound shows atrophic echogenic kidneys consistent with medical renal di sease. ASSESSMENT AND PLAN: 1. Nonoliguric acute kidney injury on top of chronic kidney disease stage IV with previous baseline creatinine around 2.5 to 3 mg/dL. Etiology of acute kidney injury appears to be multifactorial sec ondary to volume depletion due to diuretic therapy, gastrointestinal loss, Sai inhibitor effect. Th e possibility of an interstitial nephritis is a consideration given the patient's ongoing pyuria wit h negative urine cultures. The patient's renal function has improved with supportive care and gentl e IV hydration. The patient's continues to have some mild uremic symptoms with underlying lethargy. The patient's renal ultrasound shows evidence of echogenic kidneys but no obstruction. Plan at th is point is to continue current treatment plan. Continue gentle IV hydration. Continue to hold diu retic therapy and continue supportive care, renally dose all meds. Please note I spoke yesterday wi th the patient's daughter, informing her of the possibility of dialysis if there is no significant i mprovement in renal function. The patient continues to have some lethargy and uremic symptoms. The patient's daughter is aware and does not appear to want to pursue dialysis at this time. Will cont inue to monitor closely. Continue supportive care. 2. Lethargy, confusion, likely in part due to underlying uremia. Will continue to treat acute kidn ey injury as stated above. No immediate need for renal replacement therapy at this time. 3. Hypernatremia secondary to acute kidney injury, improved. 4. Hyperkalemia secondary to acute kidney injury. Hyperglycemia, improved. Continue to monitor. 5. Anemia. Continue to monitor hemoglobin and hematocrit levels. ____ 6. Continue to monitor calcium and phosphorus levels. 7. Possible urinary tract infection. The patient's urinalysis shows pyuria but urine cultures, bl ood cultures have been negative. The patient is on antibiotics. Will continue to monitor. 8. Diarrhea, resolved. 9. Diabetes. Continue Accu-Cheks, insulin sliding scale. Dictated By: MARGIE ARRIOLA/TOMMY Conf#: [id number] DID#: [id number]
[2016-09-28] MEDS: CEFTRIAXONE 2 GM/50 ML (PMX) 50 ML IVPB SCH (14:32)
--- NOTE | 2016-09-28 20:35 | PN ---
Date/Time of Note Date/Time of Note DATE: 09/28/16 TIME: 20:25 Assessment/Plan VTE Prophylaxis VTE Prophylaxis Intervention: SCD's Lines/Catheters IV [facility]from [facility] Saline Lock Urinary Cath still in place: Yes Reason Cath still needed: urinary retention Assessment/Plan Chief Complaint/Hosp Course ASSESSMENT AND PLAN: - Acute kidney injury on top of chronic kidney disease stage IV. Dr. Chen is following in nephrology consultation. Continue IV fluids. Monitor BUN and creatinine. -Metabolic encephalopathy, resolving. -UTI per UA, continue Rocephin, follow up on cultures. -Diabetes mellitus type 2, continue Lantus and NovoLog -Systolic and diastolic congestive heart failure, continue Coreg. Dr. Eduardo will be following patient from cardiology standpoint. -Cardiomyopathy with ejection fraction of 45% -COPD, continue Spiriva and Symbicort. -Hypothyroidism, resume Synthroid. Check TSH. -Dyslipidemia, continue statin. -Status post CVA, continue aspirin. Further recommendations based on clinical course. Plan of care discussed with Dr. Lewis. Problems: Subjective 24 Hr Interval Summary Free Text/Dictation Patient is lethargic but easily arousable, comfortable on supplemental oxygen at rest. Exam/Review of Systems Vital Signs Vitals Vital Signs Date Time Temp Pulse Resp B/P Pulse Ox O2 Delivery O2 Flow Rate FiO2 09/28/16 20:00 97.9 64 20 91/50 97 09/27/16 20:05 Nasal Cannula 2.0 Intake and Output 09/27/16 09/27/16 09/28/16 15:00 23:00 07:00 Intake Total 250 ml 250 ml Output Total 400 ml 555 ml Balance -150 ml -305 ml Exam Constitutional: alert, obese, well developed Psych: confusion Head: atraumatic, normocephalic Eyes: nl conjunctiva ENMT: nl external ears & nose Neck: supple Respiratory: diminished breath sounds Cardiovascular: nl pulses, regular rate and rhythm Gastrointestinal: non-tender, soft Genitourinary - Female: other (Lerma catheter) Musculoskeletal: nl extremities to inspection Extremities: normal pulses 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: DOCUMENT EXAMINER II-XII intact, confused Results Result Diagram: 09/28/16 0725 09/28/16 0725 Results 24 hrs Laboratory Tests Test 09/27/16 21:53 09/28/16 02:28 09/28/16 07:25 09/28/16 07:41 Bedside Glucose 259 H 192 208 White Blood Count 5.5 # Red Blood Count 3.48 L Hemoglobin 10.5 L Hematocrit 32.3 L Mean Corpuscular Volume 92.8 Mean Corpuscular Hemoglobin 30.2 Mean Corpuscular Hemoglobin Concent 32.5 Red Cell Distribution Width 14.1 Platelet Count 165 Mean Platelet Volume 10.3 Neutrophils % 54.0 Lymphocytes % 26.9 Monocytes % 12.0 H Eosinophils % 5.8 Basophils % 0.9 Nucleated Red Blood Cells % 0.0 Neutrophils # 3.0 Lymphocytes # 1.5 Monocytes # 0.7 Eosinophils # 0.3 Basophils # 0.1 Nucleated Red Blood Cells # 0.0 Sodium Level 136 Potassium Level 4.2 Chloride Level 104 Carbon Dioxide Level 22 Anion Gap 14 Blood Urea Nitrogen 91 H Creatinine 5.00 H Glucose Level 191 # Calcium Level 7.9 L Phosphorus Level 5.3 H Magnesium Level 2.2 Test 09/28/16 11:45 09/28/16 16:44 Bedside Glucose 252 H 219 Medications Medications Current Medications Metoclopramide HCl (Reglan) 10 mg Q6H PRN IV NAUSEA AND/OR VOMITING; Start at 03:30 Morphine Sulfate (morphine) 2 mg Q4H PRN IV PAIN LEVEL 7-10 Last administered on 09/28/16 10:22; Admin Dose 2 MG; Start 09/27/16 at 03:30 Heparin Sodium (Porcine) (Heparin (5000 Units/0.5 ml)) 5,000 unit Q8 SC Last administered on 09/28/16 13:24; Admin Dose 5,000 UNIT; Start 09/27/16 at 06:00 Miscellaneous Information 1 ea NOTE XX ; Start 09/27/16 at 04:00 Glucose (Glutose) 15 gm Q15M PRN PO DECREASED GLUCOSE; Start 09/27/16 at 04:00 Glucose (Glutose) 22.5 gm Q15M PRN PO DECREASED GLUCOSE; Start 09/27/16 at 04: 00 Dextrose (D50w Syringe) 25 ml Q15M PRN IV DECREASED GLUCOSE; Start 09/27/16 at 04:00 Dextrose (D50w Syringe) 50 ml Q15M PRN IV DECREASED GLUCOSE; Start 09/27/16 at 04:00 Glucagon (Glucagen) 1 mg Q15M PRN IM DECREASED GLUCOSE; Start 09/27/16 at 04:00 Glucose (Glutose) 15 gm Q15M PRN BUCCAL DECREASED GLUCOSE; Start 09/27/16 at 04 :00 Famotidine (Pepcid) 20 mg DAILY PO Last administered on 09/28/16 08:04; Admin Dose 20 MG; Start 09/27/16 at 09:00 Diagnostic Test (Pha) 1 ea 1 ea 02 XX ; Start 09/28/16 at 02:00 Ceftriaxone Sodium 50 ml @ 100 mls/hr Q24H IVPB Last administered on 14:32; Admin Dose 100 MLS/HR; Start 09/27/16 at 15:00 Albumin Human (Albumin Human 25%) 100 ml @ 100 mls/hr Q8H IV Last administered on 09/28/16 11:55; Admin Dose 100 MLS/HR; Start 09/28/16 at 12:00 ; Stop 09/29/16 at 04:59 Insulin Glargine (Lantus) 34 unit DAILY@08 SC ; Start 09/29/16 at 08:00 DWAINE BLACK Sep 28, 2016 20:35
[2016-09-28] MEDS: ATORVASTATIN 80 MG TAB PO SCH (21:00)
[2016-09-29] VITALS (10 sets, daily range): BP systolic 101–154; BP diastolic 49–67; PULSE 60–91; RESP 18–20
[2016-09-29] MEDS: ACCU-CHEK XX SCH (02:00)
[2016-09-29] MEDS: ALBUMIN HUMAN 25% 100 ML IV SCH (03:09)
[2016-09-29] MEDS: morphine 2 MG INJ IV PRN (03:21)
[2016-09-29] MEDS: LEVOTHYROXINE 175 MCG TAB PO SCH (05:35)
[2016-09-29] MEDS: HEPARIN 5,000 UNIT/0.5 ML VIAL SC SCH ×3 (05:37→21:34)
[2016-09-29 07:43] LABS: ADD SCAN DIFF NO
[2016-09-29 07:49] LABS: BASOPHILS % 0.7 % (0.0-2.0); EOSINOPHILS # 0.3 10^3/ul (0.0-0.5); EOSINOPHILS % 5.7 % (0.0-7.0); HEMATOCRIT 33.1 % (37.0-47.0); HEMOGLOBIN 10.7 g/dl (12.0-16.0); LYMPHOCYTES # 1.8 10^3/ul (0.8-2.9); LYMPHOCYTES % 30.5 % (15.0-51.0); MEAN CORPUSCULAR HGB CONC 32.3 g/dl (32.0-37.0); MEAN CORPUSCULAR VOLUME 92.7 fl (82.0-101.0); MONOCYTE # 0.6 10^3/ul (0.3-0.9); MONOCYTES % 10.4 % (0.0-11.0); NEUTROPHIL # 3.1 10^3/ul (1.6-7.5); NEUTROPHILS % 52.2 % (39.0-77.0); PLATELET COUNT 174 10^3/UL (140-415); RED BLOOD COUNT 3.57 10^6/ul (4.20-5.40); RED CELL DISTRIBUTION WIDTH 13.9 % (11.5-14.5)
[2016-09-29 07:58] LABS: CALCIUM 8.9 mg/dl (8.4-10.2); CREATININE 3.22 mg/dl (0.44-1.00); MAGNESIUM 2.2 mg/dl (1.7-2.5); PHOSPHORUS 3.7 mg/dl (2.5-4.9); POTASSIUM 4.3 mmol/L (3.5-5.1)
[2016-09-29] MEDS: INSULIN ASPART [NOVOLOG] 3 ML PEN SC SCH ×7 (08:00→21:00)
[2016-09-29] MEDS: TIOTROPIUM 18 MCG CAPSULE INHA DEV INH SCH (08:36)
[2016-09-29] MEDS: FAMOTIDINE 20 MG TAB PO SCH (08:36)
[2016-09-29] MEDS: SERTRALINE 100 MG TAB PO SCH (08:36)
[2016-09-29] MEDS: ASPIRIN (EC) 81 MG TAB PO SCH (08:36)
[2016-09-29] MEDS: INSULIN GLARGINE [LANtus] 3 ML PEN SC SCH (08:38)
[2016-09-29] MEDS: SALMETEROL/FLUTICASONE 250/50 INHA INH SCH ×3 (10:12→23:29)
--- NOTE | 2016-09-29 10:38 | PN ---
DATE: 09/29/2016 SUBJECTIVE: The patient is clinically improving. The patient is more alert today. No other events noted. No hemoptysis, hematemesis or hematochezia. OBJECTIVE: VITAL SIGNS: Blood pressure 154/67, respiration 18, pulse 61, temperature 98.4. I's and O's: The patient had 1400 in; 2.4 liters out. HEENT: Head is normocephalic. NECK: Supple. HEART: Regular rate. LUNGS: Show diminished breath sounds at base. ABDOMEN: Soft, nontender to palpation without rebound or guarding. EXTREMITIES: Negative for clubbing, cyanosis, no edema. DERMATOLOGIC: No rashes. MUSCULOSKELETAL: No joint effusions. NEUROLOGIC: No change in exam. MEDICATIONS: Reviewed. LABORATORY DATA: Showed sodium 140, potassium 4.3, chloride 108, BUN 72, creatinine 3.22. White co unt 6.0, hemoglobin 10.7, hematocrit 33.1, platelet count is 174. ASSESSMENT AND PLAN: 1. Nonoliguric acute kidney injury on top of chronic kidney disease stage IV with previous baseline creatinine around 2.5 to 3 mg/dL. Etiology of acute kidney injury was multifactorial secondary to volume depletion due to diuretic therapy, gastrointestinal loss, CHRISTINA inhibitor effect. Questionable interstitial nephritis. The patient's renal function has been improving with supportive care and a fter receiving IV fluids. At this point, will continue current treatment plan, supportive care, laurie ally dose all meds. Will hold IV fluids for now as patient's tolerating p.o. There is no indication for renal replacement therapy at this time. Monitor closely. 2. Lethargy, confusion, improving. Etiology may be secondary to underlying uremia, the patient is clinically improving. Continue to monitor. 3. Hypernatremia, resolved. 4. Hyperkalemia, resolved. 5. Anemia. Continue to monitor hemoglobin and hematocrit levels. 6. Mineral bone disease. Continue to monitor calcium and phosphorus levels. 7. Possible urinary tract infection. Continue current antibiotic regimen. 8. Diarrhea, resolved. 9. Diabetes. Continue Accu-Cheks, insulin sliding scale. 10. History of chronic obstructive pulmonary disease. Continue medical management. 11. History of congestive heart failure. Continue current medical management. Holding diuretic th erapy and CHRISTINA inhibitor at this time as the patient was in acute kidney injury. Dictated By: MARGIE BYRNES DO NR/NTS Conf#: [id number] DID#: [id number]
[2016-09-29] MEDS: CEFTRIAXONE 2 GM/50 ML (PMX) 50 ML IVPB SCH (15:12)
--- NOTE | 2016-09-29 16:53 | PN ---
Date/Time of Note Date/Time of Note DATE: 09/29/16 TIME: 16:51 Assessment/Plan VTE Prophylaxis VTE Prophylaxis Intervention: other Lines/Catheters [facility] Saline Lock Urinary Cath still in place: Yes Assessment/Plan Assessment/Plan - Acute kidney injury on top of chronic kidney disease stage IV. - per Dr. Chen in nephrology consultation. Continue IV fluids. Monitor BUN and creatinine. -Metabolic encephalopathy, resolving. -UTI per UA, continue Rocephin, follow up on cultures. -Diabetes mellitus type 2, continue Lantus and NovoLog -Systolic and diastolic congestive heart failure, continue Coreg. - per Dr. Eduardo in cardiology -Cardiomyopathy with ejection fraction of 45% -COPD, continue Spiriva and Symbicort. -Hypothyroidism, resume Synthroid. Check TSH. -Dyslipidemia, continue statin. -Status post CVA, continue aspirin. Further recommendations based on clinical course. Plan of care discussed with Dr. Lewis. Subjective 24 Hr Interval Summary Free Text/Dictation Patient states afebrile, more awake, having hyperglycemia discussed with the staff Exam/Review of Systems Vital Signs Vitals Vital Signs Date Time Temp Pulse Resp B/P Pulse Ox O2 Delivery O2 Flow Rate FiO2 09/29/16 16:11 72 09/29/16 15:00 98.0 19 101/49 96 09/27/16 20:05 Nasal Cannula 2.0 Intake and Output 09/28/16 09/28/16 09/29/16 15:00 23:00 07:00 Intake Total 930 ml 500 ml Output Total 900 ml 1500 ml Balance 30 ml -1000 ml Exam Psych: nl mood/affect Eyes: EOMI, nl sclera ENMT: nl external ears & nose Neck: non-tender Respiratory: clear to auscultation Cardiovascular: nl pulses Gastrointestinal: non-tender, soft 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: nl mental status, nl speech Skin: other Lymph: nontender Results Result Diagram: 09/29/16 0708 09/29/16 0708 Results 24 hrs Laboratory Tests Test 09/28/16 21:22 09/28/16 21:54 09/29/16 02:13 09/29/16 07:08 Bedside Glucose 78 83 122 White Blood Count 6.0 Red Blood Count 3.57 L Hemoglobin 10.7 L Hematocrit 33.1 L Mean Corpuscular Volume 92.7 Mean Corpuscular Hemoglobin 30.0 Mean Corpuscular Hemoglobin Concent 32.3 Red Cell Distribution Width 13.9 Platelet Count 174 Mean Platelet Volume 10.0 Neutrophils % 52.2 Lymphocytes % 30.5 Monocytes % 10.4 Eosinophils % 5.7 Basophils % 0.7 Nucleated Red Blood Cells % 0.0 Neutrophils # 3.1 Lymphocytes # 1.8 Monocytes # 0.6 Eosinophils # 0.3 Basophils # 0.0 Nucleated Red Blood Cells # 0.0 Sodium Level 140 Potassium Level 4.3 Chloride Level 108 Carbon Dioxide Level 23 Anion Gap 13 Blood Urea Nitrogen 72 H Creatinine 3.22 #H Glucose Level 121 # Calcium Level 8.9 Phosphorus Level 3.7 Magnesium Level 2.2 Test 09/29/16 08:34 09/29/16 11:37 Bedside Glucose 230 H 270 H Medications Medications Current Medications Metoclopramide HCl (Reglan) 10 mg Q6H PRN IV NAUSEA AND/OR VOMITING; Start at 03:30 Morphine Sulfate (morphine) 2 mg Q4H PRN IV PAIN LEVEL 7-10 Last administered on 09/29/16 03:21; Admin Dose 2 MG; Start 09/27/16 at 03:30 Heparin Sodium (Porcine) (Heparin (5000 Units/0.5 ml)) 5,000 unit Q8 SC Last administered on 09/29/16 14:03; Admin Dose 5,000 UNIT; Start 09/27/16 at 06:00 Miscellaneous Information 1 ea NOTE XX ; Start 09/27/16 at 04:00 Glucose (Glutose) 15 gm Q15M PRN PO DECREASED GLUCOSE; Start 09/27/16 at 04:00 Glucose (Glutose) 22.5 gm Q15M PRN PO DECREASED GLUCOSE; Start 09/27/16 at 04: 00 Dextrose (D50w Syringe) 25 ml Q15M PRN IV DECREASED GLUCOSE; Start 09/27/16 at 04:00 Dextrose (D50w Syringe) 50 ml Q15M PRN IV DECREASED GLUCOSE; Start 09/27/16 at 04:00 Glucagon (Glucagen) 1 mg Q15M PRN IM DECREASED GLUCOSE; Start 09/27/16 at 04:00 Glucose (Glutose) 15 gm Q15M PRN BUCCAL DECREASED GLUCOSE; Start 09/27/16 at 04 :00 Famotidine (Pepcid) 20 mg DAILY PO Last administered on 09/29/16 08:36; Admin Dose 20 MG; Start 09/27/16 at 09:00 Diagnostic Test (Pha) 1 ea 1 ea 02 XX ; Start 09/28/16 at 02:00 Ceftriaxone Sodium (Rocephin) 50 ml @ 100 mls/hr Q24H IVPB Last administered on 09/29/16 15:12; Admin Dose 100 MLS/HR; Start 09/27/16 at 15:00 Insulin Glargine (Lantus) 34 unit DAILY@08 SC Last administered on 09/29/16 08 :38; Admin Dose 34 UNIT; Start 09/29/16 at 08:00 Atorvastatin Calcium (Lipitor) 80 mg QHS PO ; Start 09/28/16 at 21:00 Carvedilol (Coreg) 6.25 mg BID PO Last administered on 09/29/16 08:41; Admin Dose 6.25 MG; Start 09/28/16 at 21:00 Sertraline HCl (Zoloft) 100 mg DAILY PO Last administered on 09/29/16 08:36; Admin Dose 100 MG; Start 09/29/16 at 09:00 Tiotropium [place] (Spiriva) 1 inh DAILY INH Last administered on 09/29/16 08: 36; Admin Dose 1 INH; Start 09/29/16 at 09:00 Salmeterol Xinafoate/ Fluticasone (Advair 250/50 Diskus) 1 inh BID INH Last administered on 09/29/16 10:12; Admin Dose 1 INH; Start 09/29/16 at 09:00 Levothyroxine Sodium (Synthroid) 175 mcg DAILY@06 PO Last administered on 05:35; Admin Dose 175 MCG; Start 09/29/16 at 06:00 Aspirin (Halfprin) 81 mg DAILY PO Last administered on 09/29/16 08:36; Admin Dose 81 MG; Start 09/29/16 at 09:00 CHRISTINA JEREZ Sep 29, 2016 16:53
--- NOTE | 2016-09-29 18:37 | CONS ---
Date/Time of Note Date/Time of Note DATE: 09/29/16 TIME: 18:31 Assessment/Plan Assessment/Plan Additional Assessment/Plan Acute decompensated systolic and diastolic congestive heart failure Cardiomyopathy with ejection fraction 45% COPD Acute kidney injury Obesity Hypertension Diabetes CVA UTI Encephalopathy -Patient's congestive heart failure with progressive improvement. Blood pressure trend appears stable. Would continue aspirin, statin, beta-melinda. No CHRISTINA inhibitor given acute kidney injury. If blood pressure remains stable, would start hydralazine and possibly Isordil. Consultation Date/Type/Reason Admit Date/Time 09/27/16 0139 Type of Consultation: cv Reason for Consultation Congestive heart failure Hx of Present Illness This is a 71-year-old female past medical history of CVA, congestive heart failure was admitted with altered mental status. Patient found to be in acute kidney injury, decompensated congestive heart failure as well as possible UTI. Patient's diuretics and fluids have been managed by our nephrology colleague. Patient with progressive improvement in shortness of breath. He denies any chest pain, palpitations. She does complain of nausea and intermittent abdominal pain. She does complain of headache as well. She is not sure why she is in the hospital. He denies any fevers or chills, vomiting or diarrhea at the current time. 12 point review of systems was performed with all pertinent positives and negatives mentioned above and all else is negative Psychological: nl mood/affect Past Medical History Systolic and diastolic congestive heart failure Cardiomyopathy with ejection fraction 45% COPD Kidney disease Obesity Hypertension Diabetes CVA Past Surgical History Past Surgical Hx: no surgical history Family History Significant Family History: no pertinent family hx Social History Alcohol Use: rarely Smoking Status: Current every day smoker Drug Use: none Exam/Review of Systems Vital Signs Vitals Vital Signs Date Time Temp Pulse Resp B/P Pulse Ox O2 Delivery O2 Flow Rate FiO2 09/29/16 16:11 72 09/29/16 15:00 98.0 19 101/49 96 09/27/16 20:05 Nasal Cannula 2.0 Intake and Output 09/28/16 09/28/16 09/29/16 15:00 23:00 07:00 Intake Total 930 ml 500 ml Output Total 900 ml 1500 ml Balance 30 ml -1000 ml Exam Follows commands, confused at times, no apparent distress Constitutional: alert, obese Head: normocephalic Neck: supple Respiratory: other (Coarse breath sounds bilaterally, no wheezing) Cardiovascular: other, regular rate and rhythm Gastrointestinal: bowel sounds, non-tender, other (No guarding), soft Extremities: edema, other (No cyanosis) Results Result Diagram: 09/29/16 0708 09/29/16 0708 Results 24 hrs Laboratory Tests Test 09/28/16 21:22 09/28/16 21:54 09/29/16 02:13 09/29/16 07:08 Bedside Glucose 78 83 122 White Blood Count 6.0 Red Blood Count 3.57 L Hemoglobin 10.7 L Hematocrit 33.1 L Mean Corpuscular Volume 92.7 Mean Corpuscular Hemoglobin 30.0 Mean Corpuscular Hemoglobin Concent 32.3 Red Cell Distribution Width 13.9 Platelet Count 174 Mean Platelet Volume 10.0 Neutrophils % 52.2 Lymphocytes % 30.5 Monocytes % 10.4 Eosinophils % 5.7 Basophils % 0.7 Nucleated Red Blood Cells % 0.0 Neutrophils # 3.1 Lymphocytes # 1.8 Monocytes # 0.6 Eosinophils # 0.3 Basophils # 0.0 Nucleated Red Blood Cells # 0.0 Sodium Level 140 Potassium Level 4.3 Chloride Level 108 Carbon Dioxide Level 23 Anion Gap 13 Blood Urea Nitrogen 72 H Creatinine 3.22 #H Glucose Level 121 # Calcium Level 8.9 Phosphorus Level 3.7 Magnesium Level 2.2 Test 09/29/16 08:34 09/29/16 11:37 09/29/16 17:06 Bedside Glucose 230 H 270 H 89 Medications Medications Current Medications Metoclopramide HCl (Reglan) 10 mg Q6H PRN IV NAUSEA AND/OR VOMITING; Start at 03:30 Morphine Sulfate (morphine) 2 mg Q4H PRN IV PAIN LEVEL 7-10 Last administered on 09/29/16 03:21; Admin Dose 2 MG; Start 09/27/16 at 03:30 Heparin Sodium (Porcine) (Heparin (5000 Units/0.5 ml)) 5,000 unit Q8 SC Last administered on 09/29/16 14:03; Admin Dose 5,000 UNIT; Start 09/27/16 at 06:00 Miscellaneous Information 1 ea NOTE XX ; Start 09/27/16 at 04:00 Glucose (Glutose) 15 gm Q15M PRN PO DECREASED GLUCOSE; Start 09/27/16 at 04:00 Glucose (Glutose) 22.5 gm Q15M PRN PO DECREASED GLUCOSE; Start 09/27/16 at 04: 00 Dextrose (D50w Syringe) 25 ml Q15M PRN IV DECREASED GLUCOSE; Start 09/27/16 at 04:00 Dextrose (D50w Syringe) 50 ml Q15M PRN IV DECREASED GLUCOSE; Start 09/27/16 at 04:00 Glucagon (Glucagen) 1 mg Q15M PRN IM DECREASED GLUCOSE; Start 09/27/16 at 04:00 Glucose (Glutose) 15 gm Q15M PRN BUCCAL DECREASED GLUCOSE; Start 09/27/16 at 04 :00 Famotidine (Pepcid) 20 mg DAILY PO Last administered on 09/29/16 08:36; Admin Dose 20 MG; Start 09/27/16 at 09:00 Diagnostic Test (Pha) 1 ea 1 ea 02 XX ; Start 09/28/16 at 02:00 Ceftriaxone Sodium (Rocephin) 50 ml @ 100 mls/hr Q24H IVPB Last administered on 09/29/16 15:12; Admin Dose 100 MLS/HR; Start 09/27/16 at 15:00 Insulin Glargine (Lantus) 34 unit DAILY@08 SC Last administered on 09/29/16 08 :38; Admin Dose 34 UNIT; Start 09/29/16 at 08:00 Atorvastatin Calcium (Lipitor) 80 mg QHS PO ; Start 09/28/16 at 21:00 Carvedilol (Coreg) 6.25 mg BID PO Last administered on 09/29/16 08:41; Admin Dose 6.25 MG; Start 09/28/16 at 21:00 Sertraline HCl (Zoloft) 100 mg DAILY PO Last administered on 09/29/16 08:36; Admin Dose 100 MG; Start 09/29/16 at 09:00 Tiotropium [place] (Spiriva) 1 inh DAILY INH Last administered on 09/29/16 08: 36; Admin Dose 1 INH; Start 09/29/16 at 09:00 Salmeterol Xinafoate/ Fluticasone (Advair 250/50 Diskus) 1 inh BID INH Last administered on 09/29/16 10:12; Admin Dose 1 INH; Start 09/29/16 at 09:00 Levothyroxine Sodium (Synthroid) 175 mcg DAILY@06 PO Last administered on 05:35; Admin Dose 175 MCG; Start 09/29/16 at 06:00 Aspirin (Halfprin) 81 mg DAILY PO Last administered on 09/29/16 08:36; Admin Dose 81 MG; Start 09/29/16 at 09:00 Procedures Procedures ECG done on September 26 demonstrates sinus rhythm at 60 bpm, QRS 86 ms, frequent PACs, nonspecific STT wave abnormalities Jim Eduardo DO Sep 29, 2016 18:37
[2016-09-29] MEDS: ATORVASTATIN 80 MG TAB PO SCH (21:33)
[2016-09-30] VITALS (11 sets, daily range): BP systolic 113–147; BP diastolic 53–63; PULSE 59–75; RESP 15–20
[2016-09-30] MEDS: ACCU-CHEK XX SCH (02:00)
[2016-09-30] MEDS: LEVOTHYROXINE 175 MCG TAB PO SCH (05:27)
[2016-09-30] MEDS: HEPARIN 5,000 UNIT/0.5 ML VIAL SC SCH ×3 (05:28→22:25)
[2016-09-30] MEDS: ASPIRIN (EC) 81 MG TAB PO SCH (08:07)
[2016-09-30] MEDS: TIOTROPIUM 18 MCG CAPSULE INHA DEV INH SCH (08:07)
[2016-09-30] MEDS: FAMOTIDINE 20 MG TAB PO SCH (08:07)
[2016-09-30] MEDS: SALMETEROL/FLUTICASONE 250/50 INHA INH SCH ×2 (08:07→22:07)
[2016-09-30] MEDS: SERTRALINE 100 MG TAB PO SCH (08:08)
[2016-09-30] MEDS: INSULIN GLARGINE [LANtus] 3 ML PEN SC SCH (08:09)
[2016-09-30] MEDS: INSULIN ASPART [NOVOLOG] 3 ML PEN SC SCH ×7 (08:10→21:00)
[2016-09-30 08:11] LABS: POTASSIUM 3.9 mmol/L (3.5-5.1)
[2016-09-30 08:14] LABS: CREATININE 2.22 mg/dl (0.44-1.00)
[2016-09-30 08:15] LABS: CALCIUM 8.7 mg/dl (8.4-10.2); PHOSPHORUS 3.2 mg/dl (2.5-4.9)
[2016-09-30] MEDS: morphine 2 MG INJ IV PRN ×2 (10:06→22:20)
--- NOTE | 2016-09-30 10:11 | PN ---
DATE: 09/30/2016 SUBJECTIVE: The patient is currently stable, no acute events overnight. No fevers, chills, nausea, vomiting. OBJECTIVE: VITAL SIGNS: Blood pressure is 113/56, respirations 19, pulse 67, temperature 98.4. HEENT: Head is normocephalic. NECK: Supple. HEART: Regular rate. LUNGS: Show diminished breath sounds at the bases. ABDOMEN: Soft, nontender to palpation. No rebound or guarding. EXTREMITIES: Negative for clubbing, cyanosis. No edema. DERMATOLOGIC: No rashes. MUSCULOSKELETAL: No joint effusions. NEUROLOGIC: No change in exam. MEDICATIONS: The patient's medications have been reviewed. LABORATORY DATA: Shows a sodium 140, potassium 3.9, chloride 105, BUN 53, creatinine 2.22, glucose 239. Hemoglobin A1c 11.7. ASSESSMENT AND PLAN: 1. Nonoliguric acute kidney injury on top of chronic kidney disease stage IV with previous baseline creatinine around 2.5 to 3 mg/dL. Etiology of current acute kidney injury is secondary to volume d epletion and CHRISTINA inhibitor effect. The patient's renal function has significantly improved. Creati nine currently below previous baseline. At this point, would continue current treatment plan, suppo rtive care, renally dose all meds. If the patient's renal function remains stable, may reintroduce low dose CHRISTINA inhibitor and/or diuretic therapy. 2. Anemia. Continue to monitor hemoglobin and hematocrit levels. 3. Mineral bone disorder. Continue to monitor calcium and phosphorus levels. 4. History of congestive heart failure. The patient is currently euvolemic. We will continue to m onitor. As stated above, may reintroduce low dose diuretic therapy and/or CHRISTINA inhibitor if renal fu nction remains stable. We will follow up with cardiology for further recommendations. 5. Lethargy, confusion, improving. 6. Urinary tract infection. Continue current antibiotic regimen. 7. Diarrhea, resolved. 8. Diabetes. The patient's hemoglobin A1c is markedly elevated. Continue current insulin regimen. 9. History of chronic obstructive pulmonary disease. Dictated By: MARGIE ARRIOLA/TOMMY Conf#: [id number] DID#: [id number]
--- NOTE | 2016-09-30 14:08 | PN ---
Date/Time of Note Date/Time of Note DATE: 09/30/16 TIME: 13:57 Assessment/Plan VTE Prophylaxis VTE Prophylaxis Intervention: SCD's Lines/Catheters [facility] Saline Lock Urinary Cath still in place: Yes Reason Cath still needed: urinary retention Assessment/Plan Chief Complaint/Hosp Course ASSESSMENT AND PLAN: - Acute kidney injury on top of chronic kidney disease stage IV, resolving. Dr. Chen is following in nephrology consultation. Continue IV fluids. Monitor BUN and creatinine. - Metabolic encephalopathy, resolving. - UTI per UA, continue Rocephin, follow up on cultures. - Poorly controlled Diabetes mellitus type 2, continue Lantus and NovoLog, started on linagliptin. - Acute on chronic systolic and diastolic congestive heart failure, continue Coreg. Dr. Eduardo is following patient from cardiology standpoint. - Cardiomyopathy with ejection fraction of 45% - COPD, continue Spiriva and Symbicort. - Hypothyroidism, TSH is 76.5. Patient was discharged home on Synthroid 175 mcg daily however I cannot see that medication on her current home medication. Patient is restarted on Synthroid. - Dyslipidemia, continue statin. - Status post CVA, continue aspirin. - Morbid obesity -Long-term tobacco user Further recommendations based on clinical course. Plan of care discussed with Dr. Lewis. Problems: Subjective 24 Hr Interval Summary Free Text/Dictation Patient is awake alert, denies any chest pain, complains of shortness of breath on exertion. Exam/Review of Systems Vital Signs Vitals Vital Signs Date Time Temp Pulse Resp B/P Pulse Ox O2 Delivery O2 Flow Rate FiO2 09/30/16 12:31 66 09/30/16 11:29 98.7 18 135/53 99 09/27/16 20:05 Nasal Cannula 2.0 Intake and Output 09/29/16 09/29/16 09/30/16 15:00 23:00 07:00 Intake Total 850 ml 400 ml Output Total 1000 ml 1100 ml Balance -150 ml -700 ml Exam Constitutional: alert, obese, well developed Psych: confusion Head: atraumatic, normocephalic Eyes: nl conjunctiva ENMT: nl external ears & nose Neck: supple Respiratory: diminished breath sounds Cardiovascular: nl pulses, regular rate and rhythm Gastrointestinal: non-tender, soft Genitourinary - Female: other ([place]a catheter) Musculoskeletal: nl extremities to inspection Extremities: normal pulses 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: S[employer]IOR [employer] A[employer]LYST II-XII intact, confused Results Result Diagram: 09/29/16 0708 09/30/16 0715 Results 24 hrs Laboratory Tests Test 09/29/16 17:06 09/29/16 21:28 09/30/16 02:07 09/30/16 07:15 Bedside Glucose 89 107 210 Sodium Level 140 Potassium Level 3.9 Chloride Level 105 Carbon Dioxide Level 24 Anion Gap 15 Blood Urea Nitrogen 53 H Creatinine 2.22 #H Glucose Level 239 #H Hemoglobin A1c 11.7 H Calcium Level 8.7 Phosphorus Level 3.2 Magnesium Level 2.0 Test 09/30/16 08:06 09/30/16 11:38 Bedside Glucose 256 H 225 H Medications Medications Current Medications Metoclopramide HCl (Reglan) 10 mg Q6H PRN IV NAUSEA AND/OR VOMITING; Start at 03:30 Morphine Sulfate (morphine) 2 mg Q4H PRN IV PAIN LEVEL 7-10 Last administered on 09/30/16 10:06; Admin Dose 2 MG; Start 09/27/16 at 03:30 Heparin Sodium (Porcine) (Heparin (5000 Units/0.5 ml)) 5,000 unit Q8 SC Last administered on 09/30/16 05:28; Admin Dose 5,000 UNIT; Start 09/27/16 at 06:00 Miscellaneous Information 1 ea NOTE XX ; Start 09/27/16 at 04:00 Glucose (Glutose) 15 gm Q15M PRN PO DECREASED GLUCOSE; Start 09/27/16 at 04:00 Glucose (Glutose) 22.5 gm Q15M PRN PO DECREASED GLUCOSE; Start 09/27/16 at 04: 00 Dextrose (D50w Syringe) 25 ml Q15M PRN IV DECREASED GLUCOSE; Start 09/27/16 at 04:00 Dextrose (D50w Syringe) 50 ml Q15M PRN IV DECREASED GLUCOSE; Start 09/27/16 at 04:00 Glucagon (Glucagen) 1 mg Q15M PRN IM DECREASED GLUCOSE; Start 09/27/16 at 04:00 Glucose (Glutose) 15 gm Q15M PRN BUCCAL DECREASED GLUCOSE; Start 09/27/16 at 04 :00 Famotidine (Pepcid) 20 mg DAILY PO Last administered on 09/30/16 08:07; Admin Dose 20 MG; Start 09/27/16 at 09:00 Diagnostic Test (Pha) 1 ea 1 ea 02 XX ; Start 09/28/16 at 02:00 Ceftriaxone Sodium (Rocephin) 50 ml @ 100 mls/hr Q24H IVPB Last administered on 09/29/16 15:12; Admin Dose 100 MLS/HR; Start 09/27/16 at 15:00 Atorvastatin Calcium (Lipitor) 80 mg QHS PO Last administered on 09/29/16 21: 33; Admin Dose 80 MG; Start 09/28/16 at 21:00 Carvedilol (Coreg) 6.25 mg BID PO Last administered on 09/29/16 08:41; Admin Dose 6.25 MG; Start 09/28/16 at 21:00 Sertraline HCl (Zoloft) 100 mg DAILY PO Last administered on 09/30/16 08:08; Admin Dose 100 MG; Start 09/29/16 at 09:00 Tiotropium [place] (Spiriva) 1 inh DAILY INH Last administered on 09/30/16 08: 07; Admin Dose 1 INH; Start 09/29/16 at 09:00 Salmeterol Xinafoate/ Fluticasone (Advair 250/50 Diskus) 1 inh BID INH Last administered on 09/30/16 08:07; Admin Dose 1 INH; Start 09/29/16 at 09:00 Levothyroxine Sodium (Synthroid) 175 mcg DAILY@06 PO Last administered on 05:27; Admin Dose 175 MCG; Start 09/29/16 at 06:00 Aspirin (Halfprin) 81 mg DAILY PO Last administered on 09/30/16 08:07; Admin Dose 81 MG; Start 09/29/16 at 09:00 Insulin Glargine (Lantus) 38 unit DAILY@08 SC ; Start 10/01/16 at 08:00 DWAINE BLACK Sep 30, 2016 14:07
[2016-09-30] MEDS: CEFTRIAXONE 2 GM/50 ML (PMX) 50 ML IVPB SCH (14:09)
[2016-09-30] MEDS: LINAGLIPTIN 5 MG TABLET PO SCH (14:14)
--- NOTE | 2016-09-30 14:30 | CONS ---
Date/Time of Note Date/Time of Note DATE: 09/30/16 TIME: 14:28 Assessment/Plan Assessment/Plan Additional Assessment/Plan Acute decompensated systolic and diastolic congestive heart failure Cardiomyopathy with ejection fraction 45% COPD Acute kidney injury Obesity Hypertension Diabetes CVA UTI Encephalopathy, improved -Patient's congestive heart failure with progressive improvement. Blood pressure trend appears stable. Would continue aspirin, statin, beta-melinda. Renal function improving. If renal function continues to improve and okay with our nephrology colleagues, would start CHRISTINA inhibitor. Diuretics as per our nephrology colleagues. Consultation Date/Type/Reason Admit Date/Time Sep 27, 2016 at 08:55 Initial Consult Date Type of Consultation: cv 24 HR Interval Summary Free Text/Dictation Shortness of breath continues to improve. Denies chest pain currently Exam/Review of Systems Vital Signs Vitals Vital Signs Date Time Temp Pulse Resp B/P Pulse Ox O2 Delivery O2 Flow Rate FiO2 09/30/16 12:31 66 09/30/16 11:29 98.7 18 135/53 99 09/27/16 20:05 Nasal Cannula 2.0 Intake and Output 09/29/16 09/29/16 09/30/16 15:00 23:00 07:00 Intake Total 850 ml 400 ml Output Total 1000 ml 1100 ml Balance -150 ml -700 ml Exam Follows commands, no apparent distress Constitutional: alert Head: normocephalic Respiratory: other (Coarse breath sounds bilaterally, no wheezing) Cardiovascular: other (S1-S2 heard), regular rate and rhythm Gastrointestinal: bowel sounds, non-tender, soft Extremities: edema Results Result Diagram: 09/29/16 0708 09/30/16 0715 Results 24 hrs Laboratory Tests Test 09/29/16 17:06 09/29/16 21:28 09/30/16 02:07 09/30/16 07:15 Bedside Glucose 89 107 210 Sodium Level 140 Potassium Level 3.9 Chloride Level 105 Carbon Dioxide Level 24 Anion Gap 15 Blood Urea Nitrogen 53 H Creatinine 2.22 #H Glucose Level 239 #H Hemoglobin A1c 11.7 H Calcium Level 8.7 Phosphorus Level 3.2 Magnesium Level 2.0 Test 09/30/16 08:06 09/30/16 11:38 Bedside Glucose 256 H 225 H Medications Medications Current Medications Metoclopramide HCl (Reglan) 10 mg Q6H PRN IV NAUSEA AND/OR VOMITING; Start at 03:30 Morphine Sulfate (morphine) 2 mg Q4H PRN IV PAIN LEVEL 7-10 Last administered on 09/30/16 10:06; Admin Dose 2 MG; Start 09/27/16 at 03:30 Heparin Sodium (Porcine) (Heparin (5000 Units/0.5 ml)) 5,000 unit Q8 SC Last administered on 09/30/16 14:13; Admin Dose 5,000 UNIT; Start 09/27/16 at 06:00 Miscellaneous Information 1 ea NOTE XX ; Start 09/27/16 at 04:00 Glucose (Glutose) 15 gm Q15M PRN PO DECREASED GLUCOSE; Start 09/27/16 at 04:00 Glucose (Glutose) 22.5 gm Q15M PRN PO DECREASED GLUCOSE; Start 09/27/16 at 04: 00 Dextrose (D50w Syringe) 25 ml Q15M PRN IV DECREASED GLUCOSE; Start 09/27/16 at 04:00 Dextrose (D50w Syringe) 50 ml Q15M PRN IV DECREASED GLUCOSE; Start 09/27/16 at 04:00 Glucagon (Glucagen) 1 mg Q15M PRN IM DECREASED GLUCOSE; Start 09/27/16 at 04:00 Glucose (Glutose) 15 gm Q15M PRN BUCCAL DECREASED GLUCOSE; Start 09/27/16 at 04 :00 Famotidine (Pepcid) 20 mg DAILY PO Last administered on 09/30/16 08:07; Admin Dose 20 MG; Start 09/27/16 at 09:00 Diagnostic Test (Pha) 1 ea 1 ea 02 XX ; Start 09/28/16 at 02:00 Ceftriaxone Sodium (Rocephin) 50 ml @ 100 mls/hr Q24H IVPB Last administered on 09/30/16 14:09; Admin Dose 100 MLS/HR; Start 09/27/16 at 15:00 Atorvastatin Calcium (Lipitor) 80 mg QHS PO Last administered on 09/29/16 21: 33; Admin Dose 80 MG; Start 09/28/16 at 21:00 Carvedilol (Coreg) 6.25 mg BID PO Last administered on 09/29/16 08:41; Admin Dose 6.25 MG; Start 09/28/16 at 21:00 Sertraline HCl (Zoloft) 100 mg DAILY PO Last administered on 09/30/16 08:08; Admin Dose 100 MG; Start 09/29/16 at 09:00 Tiotropium [place] (Spiriva) 1 inh DAILY INH Last administered on 09/30/16 08: 07; Admin Dose 1 INH; Start 09/29/16 at 09:00 Salmeterol Xinafoate/ Fluticasone (Advair 250/50 Diskus) 1 inh BID INH Last administered on 09/30/16 08:07; Admin Dose 1 INH; Start 09/29/16 at 09:00 Levothyroxine Sodium (Synthroid) 175 mcg DAILY@06 PO Last administered on 05:27; Admin Dose 175 MCG; Start 09/29/16 at 06:00 Aspirin (Halfprin) 81 mg DAILY PO Last administered on 09/30/16 08:07; Admin Dose 81 MG; Start 09/29/16 at 09:00 Insulin Glargine (Lantus) 38 unit DAILY@08 SC ; Start 10/01/16 at 08:00 Linagliptin (Tradjenta) 5 mg DAILY PO Last administered on 09/30/16 14:14; Admin Dose 5 MG; Start 09/30/16 at 14:00 Jim Eduardo DO Sep 30, 2016 14:30
[2016-09-30 16:45] LABS: ADD SCAN DIFF NO
[2016-09-30 16:47] LABS: BASOPHILS % 0.8 % (0.0-2.0); EOSINOPHILS # 0.2 10^3/ul (0.0-0.5); EOSINOPHILS % 4.2 % (0.0-7.0); HEMATOCRIT 32.3 % (37.0-47.0); HEMOGLOBIN 10.5 g/dl (12.0-16.0); LYMPHOCYTES # 1.3 10^3/ul (0.8-2.9); LYMPHOCYTES % 25.5 % (15.0-51.0); MEAN CORPUSCULAR HEMOGLOBIN 30.6 pg (29.0-33.0); MEAN CORPUSCULAR HGB CONC 32.5 g/dl (32.0-37.0); MEAN CORPUSCULAR VOLUME 94.2 fl (82.0-101.0); MEAN PLATELET VOLUME 9.7 fl (7.4-10.4); MONOCYTE # 0.7 10^3/ul (0.3-0.9); MONOCYTES % 13.2 % (0.0-11.0); NEUTROPHIL # 2.8 10^3/ul (1.6-7.5); NEUTROPHILS % 55.9 % (39.0-77.0); PLATELET COUNT 183 10^3/UL (140-415); RED BLOOD COUNT 3.43 10^6/ul (4.20-5.40); RED CELL DISTRIBUTION WIDTH 13.8 % (11.5-14.5); WHITE BLOOD COUNT 5.1 10^3/ul (4.8-10.8)
[2016-09-30] MEDS: ATORVASTATIN 80 MG TAB PO SCH (22:08)
[2016-10-01 00:09] VITALS: BP 130/58; PULSE 68; RESP 20
[2016-10-01 01:00] VITALS: BP 128/55; PULSE 66; RESP 20
[2016-10-01] MEDS: ACCU-CHEK XX SCH (02:00)
[2016-10-01] MEDS: morphine 2 MG INJ IV PRN ×3 (05:17→18:10)
[2016-10-01] MEDS: LEVOTHYROXINE 175 MCG TAB PO SCH (05:48)
[2016-10-01] MEDS: HEPARIN 5,000 UNIT/0.5 ML VIAL SC SCH ×3 (05:50→21:12)
[2016-10-01 06:39] LABS: CREATININE 1.78 mg/dl (0.44-1.00)
[2016-10-01 06:40] LABS: CALCIUM 8.7 mg/dl (8.4-10.2); PHOSPHORUS 3.6 mg/dl (2.5-4.9)
[2016-10-01 06:41] LABS: MAGNESIUM 1.8 mg/dl (1.7-2.5)
[2016-10-01] MEDS: INSULIN ASPART [NOVOLOG] 3 ML PEN SC SCH ×7 (07:35→21:00)
[2016-10-01 08:12] VITALS: BP 102/51; RESP 18
[2016-10-01] MEDS: FAMOTIDINE 20 MG TAB PO SCH (09:58)
[2016-10-01] MEDS: ASPIRIN (EC) 81 MG TAB PO SCH (09:58)
[2016-10-01] MEDS: SERTRALINE 100 MG TAB PO SCH (09:58)
[2016-10-01] MEDS: LINAGLIPTIN 5 MG TABLET PO SCH (09:58)
[2016-10-01] MEDS: INSULIN GLARGINE [LANtus] 3 ML PEN SC SCH (10:01)
[2016-10-01] MEDS: TIOTROPIUM 18 MCG CAPSULE INHA DEV INH SCH (11:09)
[2016-10-01] MEDS: SALMETEROL/FLUTICASONE 250/50 INHA INH SCH ×2 (11:09→21:11)
--- NOTE | 2016-10-01 11:21 | PN ---
Date/Time of Note Date/Time of Note DATE: 10/01/16 TIME: 11:21 Assessment/Plan VTE Prophylaxis VTE Prophylaxis Intervention: SCD's Lines/Catheters IV Catheter Type (from Nrs): Saline Lock Urinary Cath still in place: Yes Reason Cath still needed: urinary retention Assessment/Plan Assessment/Plan Acute decompensated systolic and diastolic congestive heart failure Cardiomyopathy with ejection fraction 45% COPD Acute kidney injury Obesity Hypertension Diabetes CVA UTI Encephalopathy, improved -Patient's congestive heart failure with progressive improvement. Blood pressure trend appears stable. Would continue aspirin, statin, beta-melinda. Renal function improving. If renal function continues to improve and okay with our nephrology colleagues, would start CHRISTINA inhibitor. Diuretics as per our nephrology colleagues. Subjective 24 Hr Interval Summary Free Text/Dictation the apteint with no change Exam/Review of Systems Vital Signs Vitals Vital Signs Date Time Temp Pulse Resp B/P Pulse Ox O2 Delivery O2 Flow Rate FiO2 10/01/16 08:12 98.3 60 18 102/51 98 10/01/16 01:00 Nasal Cannula 2.0 Intake and Output 09/30/16 09/30/16 10/01/16 14:59 22:59 06:59 Intake Total 1450 ml 660 ml Output Total 900 ml 850 ml Balance 550 ml -190 ml Results Result Diagram: 09/30/16 1615 10/01/16 0524 Results 24 hrs Laboratory Tests Test 09/30/16 11:38 09/30/16 16:15 09/30/16 16:25 09/30/16 22:04 Bedside Glucose 225 H 174 77 White Blood Count 5.1 Red Blood Count 3.43 L Hemoglobin 10.5 L Hematocrit 32.3 L Mean Corpuscular Volume 94.2 Mean Corpuscular Hemoglobin 30.6 Mean Corpuscular Hemoglobin Concent 32.5 Red Cell Distribution Width 13.8 Platelet Count 183 Mean Platelet Volume 9.7 Neutrophils % 55.9 Lymphocytes % 25.5 Monocytes % 13.2 H Eosinophils % 4.2 Basophils % 0.8 Nucleated Red Blood Cells % 0.0 Neutrophils # 2.8 Lymphocytes # 1.3 Monocytes # 0.7 Eosinophils # 0.2 Basophils # 0.0 Nucleated Red Blood Cells # 0.0 Test 10/01/16 05:24 10/01/16 07:55 10/01/16 11:06 Sodium Level 140 Potassium Level 4.0 Chloride Level 106 Carbon Dioxide Level 24 Anion Gap 14 Blood Urea Nitrogen 46 H Creatinine 1.78 H Glucose Level 188 Calcium Level 8.7 Phosphorus Level 3.6 Magnesium Level 1.8 Bedside Glucose 194 237 H Medications Medications Current Medications Metoclopramide HCl (Reglan) 10 mg Q6H PRN IV NAUSEA AND/OR VOMITING; Start at 03:30 Morphine Sulfate (morphine) 2 mg Q4H PRN IV PAIN LEVEL 7-10 Last administered on 10/01/16 10:09; Admin Dose 2 MG; Start 09/27/16 at 03:30 Heparin Sodium (Porcine) (Heparin (5000 Units/0.5 ml)) 5,000 unit Q8 SC Last administered on 10/01/16 05:50; Admin Dose 5,000 UNIT; Start 09/27/16 at 06:00 Miscellaneous Information 1 ea NOTE XX ; Start 09/27/16 at 04:00 Glucose (Glutose) 15 gm Q15M PRN PO DECREASED GLUCOSE; Start 09/27/16 at 04:00 Glucose (Glutose) 22.5 gm Q15M PRN PO DECREASED GLUCOSE; Start 09/27/16 at 04: 00 Dextrose (D50w Syringe) 25 ml Q15M PRN IV DECREASED GLUCOSE; Start 09/27/16 at 04:00 Dextrose (D50w Syringe) 50 ml Q15M PRN IV DECREASED GLUCOSE; Start 09/27/16 at 04:00 Glucagon (Glucagen) 1 mg Q15M PRN IM DECREASED GLUCOSE; Start 09/27/16 at 04:00 Glucose (Glutose) 15 gm Q15M PRN BUCCAL DECREASED GLUCOSE; Start 09/27/16 at 04 :00 Famotidine (Pepcid) 20 mg DAILY PO Last administered on 10/01/16 09:58; Admin Dose 20 MG; Start 09/27/16 at 09:00 Diagnostic Test (Pha) 1 ea 1 ea 02 XX ; Start 09/28/16 at 02:00 Ceftriaxone Sodium (Rocephin) 50 ml @ 100 mls/hr Q24H IVPB Last administered on 09/30/16 14:09; Admin Dose 100 MLS/HR; Start 09/27/16 at 15:00 Atorvastatin Calcium (Lipitor) 80 mg QHS PO Last administered on 4/21/17at 22: 08; Admin Dose 80 MG; Start 09/28/16 at 21:00 Carvedilol (Coreg) 6.25 mg BID PO Last administered on 09/30/16 22:08; Admin Dose 6.25 MG; Start 09/28/16 at 21:00 Sertraline HCl (Zoloft) 100 mg DAILY PO Last administered on 10/01/16 09:58; Admin Dose 100 MG; Start 09/29/16 at 09:00 Tiotropium [place] (Spiriva) 1 inh DAILY INH Last administered on 10/01/16 11: 09; Admin Dose 1 INH; Start 09/29/16 at 09:00 Salmeterol Xinafoate/ Fluticasone (Advair 250/50 Diskus) 1 inh BID INH Last administered on 10/01/16 11:09; Admin Dose 1 INH; Start 09/29/16 at 09:00 Levothyroxine Sodium (Synthroid) 175 mcg DAILY@06 PO Last administered on 05:48; Admin Dose 175 MCG; Start 09/29/16 at 06:00 Aspirin (Halfprin) 81 mg DAILY PO Last administered on 10/01/16 09:58; Admin Dose 81 MG; Start 09/29/16 at 09:00 Insulin Glargine (Lantus) 38 unit DAILY@08 SC Last administered on 10/01/16 10 :01; Admin Dose 38 UNIT; Start 10/01/16 at 08:00 Linagliptin (Tradjenta) 5 mg DAILY PO Last administered on 10/01/16 09:58; Admin Dose 5 MG; Start 09/30/16 at 14:00 CAREN MEDLEY MD Oct 01, 2016 11:21
--- NOTE | 2016-10-01 13:54 | PN ---
DATE: 10/01/2016 SUBJECTIVE: The patient is stable, no acute events overnight. No fevers, chills, nausea, vomiting. OBJECTIVE: VITAL SIGNS: Blood pressure 102/51, respiration 19, pulse 60, temperature 98.3. HEENT: Head is normocephalic. NECK: Supple. HEART: Regular rate. LUNGS: Show diminished breath sounds at base. ABDOMEN: Soft, nontender to palpation without rebound or guarding. EXTREMITIES: Negative for clubbing, cyanosis, edema. DERMATOLOGIC: No rashes. MUSCULOSKELETAL: No joint effusions. NEUROLOGIC: No change in exam. MEDICATIONS: Reviewed. LABORATORY DATA: Showed sodium 140, potassium 4.0, chloride 106, BUN 46, creatinine 1.78. White co unt 5.1, hemoglobin 10.5, hematocrit 32.3, platelet count is 183. ASSESSMENT AND PLAN: 1. Nonoliguric acute kidney injury on top of chronic kidney disease stage IV with previous baseline creatinine around 2.5 to 3 mg/dL. The etiology of current acute kidney injury is secondary to volu me depletion. The patient's renal function has significantly improved. Her creatinine is now impro minerva before previous baseline level. Will continue current treatment plan, supportive care, renally dose all meds. 2. Anemia. Continue to monitor hemoglobin and hematocrit levels. 3. Mineral bone disorder. Continue to monitor calcium and phosphorus levels. 4. History of congestive heart failure. The patient appears euvolemic. Continue to monitor. The p atient may be reintroduced to low dose diuretic therapy to maintain euvolemic status. 4. Urinary tract infection. The patient is completing antibiotic course. 5. Diabetes, continue Accu-Cheks and sliding scale. 6. History of chronic obstructive pulmonary disease. Dictated By: MARGIE ARRIOLA/TOMMY Conf#: [id number] DID#: [id number]
[2016-10-01] MEDS: CEFTRIAXONE 2 GM/50 ML (PMX) 50 ML IVPB SCH (14:19)
--- NOTE | 2016-10-01 17:53 | PDOCDIS ---
Discharge Instructions CONDITION Patient Condition: Stable ACTIVITY: Activity Restrictions: Slowly Increase Activity Rest between Activity Avoid heavy lifting Do not operate Machinery Do not operate Power Tool Avoid Heavy Housework Bathing Restrictions: Sponge Bath FOLLOW UP/APPOINTMENTS Appointments FU with PMD X 1 WEEK FU with cardiology as recommended FU with nephrology as recommended DW Staff/CHRISTINA Naidu Oct 01, 2016 17:53
[2016-10-01] MEDS ORDERED: LEVO175T38 PO (17:58)
[2016-10-01] MEDS ORDERED: NOVO3I SC (17:58)
[2016-10-01] MEDS ORDERED: LANT3I SC (17:58)
[2016-10-01] MEDS ORDERED: LINA5TAB PO (17:58)
--- NOTE | 2016-10-01 18:07 | DS ---
Date/Time of Note Date/Time of Note DATE: 10/01/16 TIME: 18:07 Discharge Summary Admission/Discharge Info Admit Date/Time Sep 27, 2016 at 08:55 Discharge Date/Time Patient Condition: Stable Hx of Present Illness 71-year-old female presents emergency room, via ambulance, with increasing dizziness for 3 days as well as some diarrhea and abdominal pain today. No melena or hematochezia. She denies any fevers and chills. Denies chest pain and shortness of breath. There is nonbloody. The dizziness is described as a lightheadedness ER Course per ER Physician: Acute uremia with acute kidney injury and pyelonephritis.. She has a very high BUN of 100. Also has some hyperkalemia without any EKG changes. Denies any GI bleed. After initial history taken she stated that she forgot to mention that she had a headache., Because her coming dizziness ordered a head CT which was negative for any acute process. She'll need to be admitted for nephrology evaluation and likely dialysis very soon although the need is not emergent currently. Also has a very high blood sugar was treated with a normal saline as well as lispro insulin subcutaneously. She has hyperkalemia with no EKG changes was given Kayexalate. Pain is treated with morphine and worked well. Patient was capitated to [facility] although and informed her that she would be transferred she said that she refuses. Registration is talking with an chance, and will get back to the patient. Signing out her final disposition and she made a being admitted to this hospital which case the oncoming physician will make the call to the hospitalist. Otherwise she will be admitted. Home Meds Active Scripts Linagliptin (TRADJENTA) 5 Mg Tablet, 5 MG PO DAILY for 30 Days, TAB Prov:CHRISTINA JEREZ 10/01/16 Levothyroxine Sodium* (Levoxyl*) 175 Mcg Tablet, 175 MCG PO DAILY@06 for 30 Days , TAB Prov:CHRISTINA EJREZ 10/01/16 Insulin Glargine* (Lantus*) 100 Unit/Ml Soln, 38 UNIT SC DAILY@08 for 30 Days Prov:CHRISTINA JEREZ 10/01/16 Insulin Aspart* (Novolog Insulin Pen*) 100 Unit/Ml Soln, 14 UNIT SC WITH MEALS for 30 Days Prov:CHRISTINA JEREZ 10/01/16 Carvedilol* (Carvedilol*) 6.25 Mg Tablet, 6.25 MG PO BID for 30 Days, TAB Prov:DWAINE BLACK 11/17/15 Reported Medications Ascorbic Acid (C-500) 500 Mg Tablet, 500 MG PO BID for WOUND MANAGEMENT, TAB 09/26/16 Acetaminophen* (Acetaminophen*) 325 Mg Tablet, 325 MG PO Q4H Y for PAIN AND OR ELEVATED TEMP, #30 TAB 09/26/16 Budesonide-Formoterol Fumarate* (Symbicort*) 160-4.5 Hfa.aer.ad, 1 PUFF INHALATION BID, #1 EACH 09/26/16 Tiotropium [place]* (Spiriva*) 18 Mcg Cap.w.dev, 1 CAP INHALATION DAILY, #30 CAP 09/26/16 Pantoprazole* (Pantoprazole*) 40 Mg Tablet.dr, 40 MG PO AC BREAKFAST, TAB 09/26/16 Nitroglycerin* (Nitroglycerin* SL) 0.4 Mg Tab.subl, 0.4 MG SL Q5MIN Y for CHEST PAIN, BOTTLE 09/26/16 Multivitamin with Minerals (Myvitalife) 1 Each Capsule, 1 EACH PO, CAP 09/26/16 Atorvastatin* (Atorvastatin*) 80 Mg Tablet, 80 MG PO QHS for HYPERLIPIDEMIA, # 30 TAB 09/26/16 Furosemide* (Furosemide*) 40 Mg Tablet, 40 MG PO DAILY for CHF, TAB 09/26/16 Insulin Aspart* (Novolog Insulin Pen*) 100 Unit/Ml Soln, 0 SC .SLIDING SCALE AC , EA 150-199=2 UNITS;200-249=3 UNITS;250-299=5 UNITS; 300-349= 7 UNITS ABOVE 349=10UNITS CALL MD IF BS <60 OR >400 subcutaneosly before meals and at bedtime related to TYPE 2 DIABETES MELLIYUS WITHOUT COMPLICATIONS (E11.9) FSBS CHECK AC MEALSAND HS 09/26/16 Hydralazine Hcl* (Hydralazine Hcl*) 10 Mg Tablet, 10 MG PO Q8 for HYPERTENSION, #90 TAB 09/26/16 Docusate Sodium* (Docusate Sodium*) 100 Mg Capsule, 100 MG PO BID for CONSTIPATION, #60 CAP 09/26/16 Cholecalciferol* (Vitamin D3*) 2,000 Unit Cap, 2000 UNIT PO DAILY, CAP 12/23/15 Allopurinol* (Allopurinol*) 100 Mg Tablet, 100 MG PO DAILY, TAB 12/23/15 Sertraline Hcl* (Sertraline Hcl*) 100 Mg Tablet, 100 MG PO DAILY, #30 TAB 12/23/15 Lisinopril* (Lisinopril*) 20 Mg Tablet, 20 MG PO DAILY, #30 TAB 12/23/15 Hydrocodone Bit-Acetaminophen* ([place]*) 10-325 Mg Tablet, 1 TAB PO TID Y for PAIN, TAB 12/23/15 Aspirin (Aspirin) 81 Mg Tablet.dr, 81 MG PO DAILY 05/07/13 Omeprazole* (Omeprazole*) 20 Mg Capsule.dr, 20 MG PO DAILY 05/07/13 Discontinued Reported Medications Insulin Detemir (Levemir) 100 Unit/1 Ml Vial, 30 UNIT SC DAILY, VIAL 09/26/16 Multivitamins* (Once Daily*) 1 Tab Tablet, 1 TAB PO DAILY, TAB 12/23/15 Glyburide* (Glyburide*) 5 Mg Tablet, 5 MG PO BID, #60 TAB 12/23/15 Levothyroxine Sodium* (Levoxyl*) 175 Mcg Tablet, 175 MCG PO BEFORE BREAKFAST, # 30 TAB 12/23/15 Clonazepam* (Clonazepam*) 0.5 Mg Tablet, 0.5 MG PO BID, TAB 12/23/15 Gemfibrozil* (Gemfibrozil*) 600 Mg Tablet, 600 MG PO DAILY, TAB 12/23/15 Carisoprodol* (Carisoprodol*) 350 Mg Tablet, 350 MG PO Q8 Y for MUSCLE SPASMS, TAB 12/23/15 Pioglitazone Hcl* (Actos*) 15 Mg Tablet, 15 MG PO DAILY 05/07/13 Discontinued Scripts Hydralazine Hcl* (Apresoline*) 10 Mg Tab, 10 MG PO BID for 30 Days, TAB Prov:DWAINE BLACK 11/17/15 Furosemide* (Furosemide*) 20 Mg Tablet, 20 MG PO DAILY for 30 Days, TAB Prov:DWAINE BLACK 11/17/15 Pending Labs Laboratory Tests Test 09/30/16 22:04 10/01/16 05:24 10/01/16 07:55 10/01/16 11:06 Bedside Glucose 77mg/dL (70-220) 194mg/dL (70-220) 237mg/dL (70-220) Sodium Level 140mmol/L (135-144) Potassium Level 4.0mmol/L (3.5-5.1) Chloride Level 106mmol/L (97-110) Carbon Dioxide Level 24mmol/L (21-31) Anion Gap 14 (8-16) Blood Urea Nitrogen 46mg/dl (7-20) Creatinine 1.78mg/dl (0.44-1.00) Glucose Level 188mg/dl (70-220) Calcium Level 8.7mg/dl (8.4-10.2) Phosphorus Level 3.6mg/dl (2.5-4.9) Magnesium Level 1.8mg/dl (1.7-2.5) Test 10/01/16 16:32 Bedside Glucose 135mg/dL (70-220) CHRISTINA JEREZ Oct 01, 2016 18:07
[2016-10-01 20:14] VITALS: BP 131/62; RESP 18
[2016-10-01] MEDS: ATORVASTATIN 80 MG TAB PO SCH (21:12)
[2016-10-02] MEDS: ACCU-CHEK XX SCH (02:00)
[2016-10-02] MEDS: LEVOTHYROXINE 175 MCG TAB PO SCH (05:13)
[2016-10-02] MEDS: HEPARIN 5,000 UNIT/0.5 ML VIAL SC SCH ×3 (05:14→21:42)
[2016-10-02 07:50] VITALS: BP 103/66; RESP 16
[2016-10-02] MEDS: INSULIN ASPART [NOVOLOG] 3 ML PEN SC SCH ×8 (08:00→20:27)
[2016-10-02 08:11] LABS: POTASSIUM 4.5 mmol/L (3.5-5.1)
[2016-10-02 08:14] LABS: CREATININE 1.87 mg/dl (0.44-1.00)
[2016-10-02 08:15] LABS: CALCIUM 8.4 mg/dl (8.4-10.2); MAGNESIUM 1.9 mg/dl (1.7-2.5); PHOSPHORUS 4.2 mg/dl (2.5-4.9)
[2016-10-02] MEDS: LINAGLIPTIN 5 MG TABLET PO SCH (08:50)
[2016-10-02] MEDS: SALMETEROL/FLUTICASONE 250/50 INHA INH SCH ×2 (08:50→20:26)
[2016-10-02] MEDS: TIOTROPIUM 18 MCG CAPSULE INHA DEV INH SCH (08:50)
[2016-10-02] MEDS: FAMOTIDINE 20 MG TAB PO SCH (08:53)
[2016-10-02] MEDS: INSULIN GLARGINE [LANtus] 3 ML PEN SC SCH (08:57)
[2016-10-02] MEDS: ASPIRIN (EC) 81 MG TAB PO SCH (09:00)
[2016-10-02] MEDS: SERTRALINE 100 MG TAB PO SCH (10:06)
--- NOTE | 2016-10-02 13:32 | PN ---
DATE: SUBJECTIVE: The patient is stable, no events overnight. No fevers, chills, nausea, vomiting. OBJECTIVE: VITAL SIGNS: Blood pressure 130/66, respirations 16, pulse 54, temperature 97.5. HEENT: Head is normocephalic. NECK: Supple. HEART: Regular rate. LUNGS: Show diminished breath sounds at base. ABDOMEN: Soft, nontender to palpation without rebound or guarding. EXTREMITIES: Negative for clubbing, cyanosis, edema. DERMATOLOGIC: No rashes. MUSCULOSKELETAL: No joint effusions. NEUROLOGIC: No change in exam. MEDICATIONS: The patient's medications have been reviewed. LABORATORY DATA: Showed sodium 141, ____, creatinine 1.87. ASSESSMENT AND PLAN: 1. Nonoliguric acute kidney injury on top of chronic kidney disease stage IV with previous baseline creatinine around 2.5 to 3 mg/dL. Etiology of current acute kidney injury is secondary to volume d epletion. The patient's renal function has significantly improved. Currently, her creatinine is be low previous baseline. At this point, continue current treatment plan, supportive care, renally dos e all meds, may reintroduce CHRISTINA inhibitor or low dose diuretic therapy. 2. Anemia. Continue to monitor hemoglobin and hematocrit levels. 3. ____ levels. 4. ____ . 5. History of congestive heart failure. The patient appears euvolemic. Patient's renal function is stabilized, may reintroduce low dose diuretic therapy. 6. Diabetes. Continue Accu-Cheks and sliding scale. 7. History of chronic obstructive pulmonary disease. Dictated By: MARGIE ARRIOLA/TOMMY Conf#: [id number] DID#: [id number]
[2016-10-02] MEDS: CEFTRIAXONE 2 GM/50 ML (PMX) 50 ML IVPB SCH (15:14)
[2016-10-02] MEDS: morphine 2 MG INJ IV PRN (15:22)
--- NOTE | 2016-10-02 16:40 | DS ---
Date/Time of Note Date/Time of Note DATE: 10/02/16 TIME: 16:40 Discharge Summary Admission/Discharge Info Admit Date/Time Sep 27, 2016 at 08:55 Discharge Date/Time Patient Condition: Stable Hx of Present Illness 71-year-old female presents emergency room, via ambulance, with increasing dizziness for 3 days as well as some diarrhea and abdominal pain today. No melena or hematochezia. She denies any fevers and chills. Denies chest pain and shortness of breath. There is nonbloody. The dizziness is described as a lightheadedness ER Course per ER Physician: Acute uremia with acute kidney injury and pyelonephritis.. She has a very high BUN of 100. Also has some hyperkalemia without any EKG changes. Denies any GI bleed. After initial history taken she stated that she forgot to mention that she had a headache., Because her coming dizziness ordered a head CT which was negative for any acute process. She'll need to be admitted for nephrology evaluation and likely dialysis very soon although the need is not emergent currently. Also has a very high blood sugar was treated with a normal saline as well as lispro insulin subcutaneously. She has hyperkalemia with no EKG changes was given Kayexalate. Pain is treated with morphine and worked well. Patient was capitated to [facility] although and informed her that she would be transferred she said that she refuses. Registration is talking with an chance, and will get back to the patient. Signing out her final disposition and she made a being admitted to this hospital which case the oncoming physician will make the call to the hospitalist. Otherwise she will be admitted. Home Meds Active Scripts Linagliptin (TRADJENTA) 5 Mg Tablet, 5 MG PO DAILY for 30 Days, TAB Prov:CHRISTINA JEREZ 10/01/16 Levothyroxine Sodium* (Levoxyl*) 175 Mcg Tablet, 175 MCG PO DAILY@06 for 30 Days , TAB Prov:CHRISTINA JEREZ 10/01/16 Insulin Glargine* (Lantus*) 100 Unit/Ml Soln, 38 UNIT SC DAILY@08 for 30 Days Prov:CHRISTINA JEREZ 10/01/16 Insulin Aspart* (Novolog Insulin Pen*) 100 Unit/Ml Soln, 14 UNIT SC WITH MEALS for 30 Days Prov:CHRISTINA JEREZ 10/01/16 Carvedilol* (Carvedilol*) 6.25 Mg Tablet, 6.25 MG PO BID for 30 Days, TAB Prov:DWAINE BLACK 11/17/15 Reported Medications Ascorbic Acid (C-500) 500 Mg Tablet, 500 MG PO BID for WOUND MANAGEMENT, TAB 09/26/16 Acetaminophen* (Acetaminophen*) 325 Mg Tablet, 325 MG PO Q4H Y for PAIN AND OR ELEVATED TEMP, #30 TAB 09/26/16 Budesonide-Formoterol Fumarate* (Symbicort*) 160-4.5 Hfa.aer.ad, 1 PUFF INHALATION BID, #1 EACH 09/26/16 Tiotropium [place]* (Spiriva*) 18 Mcg Cap.w.dev, 1 CAP INHALATION DAILY, #30 CAP 09/26/16 Pantoprazole* (Pantoprazole*) 40 Mg Tablet.dr, 40 MG PO AC BREAKFAST, TAB 09/26/16 Nitroglycerin* (Nitroglycerin* SL) 0.4 Mg Tab.subl, 0.4 MG SL Q5MIN Y for CHEST PAIN, BOTTLE 09/26/16 Multivitamin with Minerals (Myvitalife) 1 Each Capsule, 1 EACH PO, CAP 09/26/16 Atorvastatin* (Atorvastatin*) 80 Mg Tablet, 80 MG PO QHS for HYPERLIPIDEMIA, # 30 TAB 09/26/16 Furosemide* (Furosemide*) 40 Mg Tablet, 40 MG PO DAILY for CHF, TAB 09/26/16 Insulin Aspart* (Novolog Insulin Pen*) 100 Unit/Ml Soln, 0 SC .SLIDING SCALE AC , EA 150-199=2 UNITS;200-249=3 UNITS;250-299=5 UNITS; 300-349= 7 UNITS ABOVE 349=10UNITS CALL MD IF BS <60 OR >400 subcutaneosly before meals and at bedtime related to TYPE 2 DIABETES MELLIYUS WITHOUT COMPLICATIONS (E11.9) FSBS CHECK AC MEALSAND HS 09/26/16 Hydralazine Hcl* (Hydralazine Hcl*) 10 Mg Tablet, 10 MG PO Q8 for HYPERTENSION, #90 TAB 09/26/16 Docusate Sodium* (Docusate Sodium*) 100 Mg Capsule, 100 MG PO BID for CONSTIPATION, #60 CAP 09/26/16 Cholecalciferol* (Vitamin D3*) 2,000 Unit Cap, 2000 UNIT PO DAILY, CAP 12/23/15 Allopurinol* (Allopurinol*) 100 Mg Tablet, 100 MG PO DAILY, TAB 12/23/15 Sertraline Hcl* (Sertraline Hcl*) 100 Mg Tablet, 100 MG PO DAILY, #30 TAB 12/23/15 Lisinopril* (Lisinopril*) 20 Mg Tablet, 20 MG PO DAILY, #30 TAB 12/23/15 Hydrocodone Bit-Acetaminophen* ([place]*) 10-325 Mg Tablet, 1 TAB PO TID Y for PAIN, TAB 12/23/15 Aspirin (Aspirin) 81 Mg Tablet.dr, 81 MG PO DAILY 05/07/13 Omeprazole* (Omeprazole*) 20 Mg Capsule.dr, 20 MG PO DAILY 05/07/13 Discontinued Reported Medications Insulin Detemir (Levemir) 100 Unit/1 Ml Vial, 30 UNIT SC DAILY, VIAL 09/26/16 Multivitamins* (Once Daily*) 1 Tab Tablet, 1 TAB PO DAILY, TAB 12/23/15 Glyburide* (Glyburide*) 5 Mg Tablet, 5 MG PO BID, #60 TAB 12/23/15 Levothyroxine Sodium* (Levoxyl*) 175 Mcg Tablet, 175 MCG PO BEFORE BREAKFAST, # 30 TAB 12/23/15 Clonazepam* (Clonazepam*) 0.5 Mg Tablet, 0.5 MG PO BID, TAB 12/23/15 Gemfibrozil* (Gemfibrozil*) 600 Mg Tablet, 600 MG PO DAILY, TAB 12/23/15 Carisoprodol* (Carisoprodol*) 350 Mg Tablet, 350 MG PO Q8 Y for MUSCLE SPASMS, TAB 12/23/15 Pioglitazone Hcl* (Actos*) 15 Mg Tablet, 15 MG PO DAILY 05/07/13 Discontinued Scripts Hydralazine Hcl* (Apresoline*) 10 Mg Tab, 10 MG PO BID for 30 Days, TAB Prov:DWAINE BLACK 11/17/15 Furosemide* (Furosemide*) 20 Mg Tablet, 20 MG PO DAILY for 30 Days, TAB Prov:DWAINE BLACK 11/17/15 Pending Labs Laboratory Tests Test 10/01/16 21:14 10/02/16 06:11 10/02/16 08:06 10/02/16 12:27 Bedside Glucose 130mg/dL (70-220) 140mg/dL (70-220) 173mg/dL (70-220) Sodium Level 141mmol/L (135-144) Potassium Level 4.5mmol/L (3.5-5.1) Chloride Level 109mmol/L (97-110) Carbon Dioxide Level 23mmol/L (21-31) Anion Gap 14 (8-16) Blood Urea Nitrogen 45mg/dl (7-20) Creatinine 1.87mg/dl (0.44-1.00) Glucose Level 124mg/dl (70-220) Calcium Level 8.4mg/dl (8.4-10.2) Phosphorus Level 4.2mg/dl (2.5-4.9) Magnesium Level 1.9mg/dl (1.7-2.5) CHRISTINA JEREZ Oct 02, 2016 16:40
[2016-10-02] MEDS ORDERED: BISACODYL (EC) 5 MG TAB PO ONE (17:00)
--- NOTE | 2016-10-02 17:34 | CONS ---
Date/Time of Note Date/Time of Note DATE: 10/02/16 TIME: 17:33 Assessment/Plan Assessment/Plan Additional Assessment/Plan Acute decompensated systolic and diastolic congestive heart failure Cardiomyopathy with ejection fraction 45% COPD Acute kidney injury, improving Obesity Hypertension Diabetes CVA UTI Encephalopathy, improved -Patient's congestive heart failure with progressive improvement. Blood pressure trend appears stable. Would continue aspirin, statin, beta-melinda. Renal function improving. In concurrence with nephrology, would restart CHRISTINA inhibitor, diuretics as needed Consultation Date/Type/Reason Admit Date/Time Sep 27, 2016 at 08:55 Type of Consultation: cv 24 HR Interval Summary Free Text/Dictation Denies shortness of breath, chest pain Exam/Review of Systems Vital Signs Vitals Vital Signs Date Time Temp Pulse Resp B/P Pulse Ox O2 Delivery O2 Flow Rate FiO2 10/02/16 08:00 Nasal Cannula 2.0 10/02/16 07:50 97.5 54 16 103/66 99 Intake and Output 10/01/16 10/01/16 10/02/16 15:00 23:00 07:00 Intake Total 1230 ml Output Total 1625 ml Balance -395 ml Exam Sleeping but arousable, no apparent distress, follows commands Constitutional: obese Respiratory: other (Coarse breath sounds bilaterally, no wheezing) Cardiovascular: other (S1-S2 heard), regular rate and rhythm Gastrointestinal: bowel sounds, non-tender, soft Extremities: edema Results Result Diagram: 09/30/16 1615 10/02/16 0611 Results 24 hrs Laboratory Tests Test 10/01/16 21:14 10/02/16 06:11 10/02/16 08:06 10/02/16 12:27 Bedside Glucose 130 140 173 Sodium Level 141 Potassium Level 4.5 Chloride Level 109 Carbon Dioxide Level 23 Anion Gap 14 Blood Urea Nitrogen 45 H Creatinine 1.87 H Glucose Level 124 # Calcium Level 8.4 Phosphorus Level 4.2 Magnesium Level 1.9 Medications Medications Current Medications Metoclopramide HCl (Reglan) 10 mg Q6H PRN IV NAUSEA AND/OR VOMITING; Start at 03:30 Morphine Sulfate (morphine) 2 mg Q4H PRN IV PAIN LEVEL 7-10 Last administered on 10/02/16t 15:22; Admin Dose 2 MG; Start 09/27/16 at 03:30 Heparin Sodium (Porcine) (Heparin (5000 Units/0.5 ml)) 5,000 unit Q8 SC Last administered on 10/02/16 13:41; Admin Dose 5,000 UNIT; Start 09/27/16 at 06:00 Miscellaneous Information 1 ea NOTE XX ; Start 09/27/16 at 04:00 Glucose (Glutose) 15 gm Q15M PRN PO DECREASED GLUCOSE; Start 09/27/16 at 04:00 Glucose (Glutose) 22.5 gm Q15M PRN PO DECREASED GLUCOSE; Start 09/27/16 at 04: 00 Dextrose (D50w Syringe) 25 ml Q15M PRN IV DECREASED GLUCOSE; Start 09/27/16 at 04:00 Dextrose (D50w Syringe) 50 ml Q15M PRN IV DECREASED GLUCOSE; Start 09/27/16 at 04:00 Glucagon (Glucagen) 1 mg Q15M PRN IM DECREASED GLUCOSE; Start 09/27/16 at 04:00 Glucose (Glutose) 15 gm Q15M PRN BUCCAL DECREASED GLUCOSE; Start 09/27/16 at 04 :00 Famotidine (Pepcid) 20 mg DAILY PO Last administered on 10/02/16 08:53; Admin Dose 20 MG; Start 09/27/16 at 09:00 Diagnostic Test (Pha) 1 ea 1 ea 02 XX ; Start 09/28/16 at 02:00 Ceftriaxone Sodium (Rocephin) 50 ml @ 100 mls/hr Q24H IVPB Last administered on 10/02/16 15:14; Admin Dose 100 MLS/HR; Start 09/27/16 at 15:00 Atorvastatin Calcium (Lipitor) 80 mg QHS PO Last administered on 10/01/16 21: 12; Admin Dose 80 MG; Start 09/28/16 at 21:00 Carvedilol (Coreg) 6.25 mg BID PO Last administered on 10/01/16 21:13; Admin Dose 6.25 MG; Start 09/28/16 at 21:00 Sertraline HCl (Zoloft) 100 mg DAILY PO Last administered on 10/02/16 10:06; Admin Dose 100 MG; Start 09/29/16 at 09:00 Tiotropium [place] (Spiriva) 1 inh DAILY INH Last administered on 10/02/16 08: 50; Admin Dose 1 INH; Start 09/29/16 at 09:00 Salmeterol Xinafoate/ Fluticasone (Advair 250/50 Diskus) 1 inh BID INH Last administered on 10/02/16 08:50; Admin Dose 1 INH; Start 09/29/16 at 09:00 Levothyroxine Sodium (Synthroid) 175 mcg DAILY@06 PO Last administered on 05:13; Admin Dose 175 MCG; Start 09/29/16 at 06:00 Aspirin (Halfprin) 81 mg DAILY PO Last administered on 10/02/16 09:00; Admin Dose 81 MG; Start 09/29/16 at 09:00 Insulin Glargine (Lantus) 38 unit DAILY@08 SC Last administered on 10/02/16 08 :57; Admin Dose 38 UNIT; Start 10/01/16 at 08:00 Linagliptin (Tradjenta) 5 mg DAILY PO Last administered on 10/02/16 08:50; Admin Dose 5 MG; Start 09/30/16 at 14:00 Bisacodyl (Dulcolax) 5 mg DAILY PRN PO CONSTIPATION; Start 10/02/16 at 17:00 Jim Eduardo DO Oct 02, 2016 17:34
[2016-10-02] MEDS ORDERED: INSULIN ASPART [NOVOLOG] 3 ML PEN SC ONE (19:00)
[2016-10-02 19:34] VITALS: BP 117/58; RESP 17
[2016-10-02] MEDS: LISINOPRIL 5 MG TAB PO SCH (20:27)
[2016-10-02] MEDS: ATORVASTATIN 80 MG TAB PO SCH (20:27)
[2016-10-03] MEDS: morphine 2 MG INJ IV PRN ×4 (00:51→21:58)
[2016-10-03] MEDS: BISACODYL (EC) 5 MG TAB PO PRN ×2 (00:51→13:02)
[2016-10-03] MEDS: ACCU-CHEK XX SCH (02:00)
[2016-10-03] MEDS: LEVOTHYROXINE 175 MCG TAB PO SCH (05:59)
[2016-10-03] MEDS: HEPARIN 5,000 UNIT/0.5 ML VIAL SC SCH ×3 (06:00→22:04)
[2016-10-03 07:48] VITALS: BP 108/62; RESP 18
[2016-10-03] MEDS: INSULIN GLARGINE [LANtus] 3 ML PEN SC SCH (08:34)
[2016-10-03] MEDS: INSULIN ASPART [NOVOLOG] 3 ML PEN SC SCH ×7 (08:35→21:00)
[2016-10-03] MEDS: TIOTROPIUM 18 MCG CAPSULE INHA DEV INH SCH (08:40)
[2016-10-03] MEDS: SALMETEROL/FLUTICASONE 250/50 INHA INH SCH ×2 (08:40→21:23)
[2016-10-03] MEDS: LINAGLIPTIN 5 MG TABLET PO SCH (08:41)
[2016-10-03] MEDS: SERTRALINE 100 MG TAB PO SCH (08:41)
[2016-10-03] MEDS: ASPIRIN (EC) 81 MG TAB PO SCH (08:41)
[2016-10-03] MEDS: LISINOPRIL 5 MG TAB PO SCH ×2 (08:42→21:24)
[2016-10-03] MEDS: FAMOTIDINE 20 MG TAB PO SCH (08:43)
--- NOTE | 2016-10-03 12:28 | PN ---
DATE: 10/03/2016 SUBJECTIVE: The patient is stable, no events overnight. No fevers, chills, nausea, vomiting. OBJECTIVE: VITAL SIGNS: Blood pressure ____, respiration 18, pulse 67, temperature 97.7. HEENT: Head is normocephalic. NECK: Supple. HEART: Regular rate. LUNGS: Show diminished breath sounds at the base. ABDOMEN: Soft, nontender to palpation. No rebound or guarding. EXTREMITIES: Negative for clubbing, cyanosis. No edema. DERMATOLOGIC: No rashes. MUSCULOSKELETAL: No joint effusions. NEUROLOGIC: No change in exam. MEDICATIONS: The patient's medications have been reviewed. LABORATORY DATA: Have been reviewed. No new labs. ASSESSMENT AND PLAN: 1. Nonoliguric acute kidney injury on top of chronic kidney disease stage IV with previous baseline creatinine 2.5 to 3 mg/dl, etiology is secondary to volume depletion, hemodynamics. Renal function has stabilized. Currently, creatinine is below previous baseline. Plan at this point is to reintr oduce CHRISTINA inhibitor. We will start lisinopril 5 mg. We will continue to monitor renal function alena sely. 2. Anemia. Continue to monitor hemoglobin and hematocrit levels. 3. Mineral bone disorder. We will continue to monitor calcium and phosphorus levels. 4. Congestive heart failure. The patient appears euvolemic. We will reintroduce CHRISTINA inhibitor. W e will give low dose diuretic therapy as needed. We will follow up with our cardiology colleagues f or further recommendations. 5. Diabetes. Continue Accu-Cheks, insulin sliding scale. 6. History of chronic obstructive pulmonary disease. Dictated By: MARGIE ARRIOLA/TOMMY Conf#: [id number] DID#: [id number]
[2016-10-03] MEDS ORDERED: MECLIZINE 25 MG TAB PO PRN (13:30)
[2016-10-03] MEDS ORDERED: NA PHOSPHATE/BIPHOS 133 ML ENEMA PR ONE (13:30)
[2016-10-03] MEDS ORDERED: NA PHOSPHATE/BIPHOS 133 ML ENEMA PR SCH (15:30)
--- NOTE | 2016-10-03 15:33 | PN ---
Date/Time of Note Date/Time of Note DATE: 10/03/16 TIME: 15:30 Assessment/Plan VTE Prophylaxis VTE Prophylaxis Intervention: SCD's Lines/Catheters IV C[facility]ter Type (from [facility] Saline Lock Urinary Cath still in place: Yes Reason Cath still needed: urinary retention Assessment/Plan Chief Complaint/Hosp Course ASSESSMENT AND PLAN: - Acute kidney injury on top of chronic kidney disease stage IV, resolved. Dr. Chen is following in nephrology consultation. Monitor BUN and creatinine. - Metabolic encephalopathy, resolved. - UTI per UA, continue Rocephin, follow up on cultures. - Poorly controlled Diabetes mellitus type 2, continue Lantus and NovoLog, started on linagliptin. - Acute on chronic systolic and diastolic congestive heart failure, continue Coreg. Dr. Eduardo is following patient from cardiology standpoint. - Cardiomyopathy with ejection fraction of 45% - COPD, continue Spiriva and Symbicort. - Hypothyroidism, TSH is 76.5. Patient was discharged home on Synthroid 175 mcg daily however I cannot see that medication on her current home medication. Patient is restarted on Synthroid. - Dyslipidemia, continue statin. - Status post CVA, continue aspirin. - Morbid obesity -Long-term tobacco user Further recommendations based on clinical course. Plan of care discussed with Dr. Lewis. Problems: Subjective 24 Hr Interval Summary Free Text/Dictation Patient discharge was held yesterday due to patient's complains of dizziness and constipation, bowel regimen started, patient was started on meclizine for dizziness, if the dizziness continues to be a problem continue to monitor patient, however patient may go home with home health services when constipation and dizziness is resolved. Exam/Review of Systems Vital Signs Vitals Vital Signs Date Time Temp Pulse Resp B/P Pulse Ox O2 Delivery O2 Flow Rate FiO2 10/03/16 07:48 97.7 67 18 108/62 100 10/02/16 20:00 Nasal Cannula 2.0 Intake and Output 10/02/16 10/02/16 10/03/16 15:00 23:00 07:00 Intake Total 840 ml 650 ml Output Total 750 ml 750 ml Balance 90 ml -100 ml Exam Constitutional: alert, obese, well developed Psych: confusion Head: atraumatic, normocephalic Eyes: nl conjunctiva ENMT: nl external ears & nose Neck: supple Respiratory: diminished breath sounds Cardiovascular: nl pulses, regular rate and rhythm Gastrointestinal: non-tender, soft Genitourinary - Female: other (Lerma catheter) Musculoskeletal: nl extremities to inspection Extremities: normal pulses 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: [employer]IDENT II-XII intact, confused Results Result Diagram: 09/30/16 1615 10/02/16 0611 Results 24 hrs Laboratory Tests Test 10/02/16 17:30 10/02/16 20:25 10/03/16 08:04 10/03/16 11:57 Bedside Glucose 86 152 153 130 Medications Medications Current Medications Metoclopramide HCl (Reglan) 10 mg Q6H PRN IV NAUSEA AND/OR VOMITING; Start at 03:30 Morphine Sulfate (morphine) 2 mg Q4H PRN IV PAIN LEVEL 7-10 Last administered on 10/03/16 12:56; Admin Dose 2 MG; Start 09/27/16 at 03:30 Heparin Sodium (Porcine) (Heparin (5000 Units/0.5 ml)) 5,000 unit Q8 SC Last administered on 10/03/16 15:11; Admin Dose 5,000 UNIT; Start 09/27/16 at 06:00 Miscellaneous Information 1 ea NOTE XX ; Start 09/27/16 at 04:00 Glucose (Glutose) 15 gm Q15M PRN PO DECREASED GLUCOSE; Start 09/27/16 at 04:00 Glucose (Glutose) 22.5 gm Q15M PRN PO DECREASED GLUCOSE; Start 09/27/16 at 04: 00 Dextrose (D50w Syringe) 25 ml Q15M PRN IV DECREASED GLUCOSE; Start 09/27/16 at 04:00 Dextrose (D50w Syringe) 50 ml Q15M PRN IV DECREASED GLUCOSE; Start 09/27/16 at 04:00 Glucagon (Glucagen) 1 mg Q15M PRN IM DECREASED GLUCOSE; Start 09/27/16 at 04:00 Glucose (Glutose) 15 gm Q15M PRN BUCCAL DECREASED GLUCOSE; Start 09/27/16 at 04 :00 Famotidine (Pepcid) 20 mg DAILY PO Last administered on 10/03/16 08:43; Admin Dose 20 MG; Start 09/27/16 at 09:00 Diagnostic Test (Pha) (Accu-Chek) 1 ea 02 XX ; Start 09/28/16 at 02:00 Atorvastatin Calcium (Lipitor) 80 mg QHS PO Last administered on 10/02/16 20: 27; Admin Dose 80 MG; Start 09/28/16 at 21:00 Sertraline HCl (Zoloft) 100 mg DAILY PO Last administered on 10/03/16 08:41; Admin Dose 100 MG; Start 09/29/16 at 09:00 Tiotropium [place] (Spiriva) 1 inh DAILY INH Last administered on 10/03/16 08: 40; Admin Dose 1 INH; Start 09/29/16 at 09:00 Salmeterol Xinafoate/ Fluticasone (Advair 250/50 Diskus) 1 inh BID INH Last administered on 10/03/16 08:40; Admin Dose 1 INH; Start 09/29/16 at 09:00 Levothyroxine Sodium (Synthroid) 175 mcg DAILY@06 PO Last administered on 05:59; Admin Dose 175 MCG; Start 09/29/16 at 06:00 Aspirin (Halfprin) 81 mg DAILY PO Last administered on 10/03/16 08:41; Admin Dose 81 MG; Start 09/29/16 at 09:00 Insulin Glargine (Lantus) 38 unit DAILY@08 SC Last administered on 10/03/16 08 :34; Admin Dose 38 UNIT; Start 10/01/16 at 08:00 Linagliptin (Tradjenta) 5 mg DAILY PO Last administered on 10/03/16 08:41; Admin Dose 5 MG; Start 09/30/16 at 14:00 Bisacodyl (Dulcolax) 5 mg DAILY PRN PO CONSTIPATION Last administered on 13:02; Admin Dose 5 MG; Start 10/02/16 at 17:00 Carvedilol (Coreg) 3.125 mg BID PO Last administered on 10/02/16 20:26; Admin Dose 3.125 MG; Start 10/02/16 at 21:00 Lisinopril (Zestril) 2.5 mg BID PO Last administered on 10/03/16 08:42; Admin Dose 2.5 MG; Start 10/02/16 at 21:00 Lisinopril (Zestril) 5 mg DAILY PO ; Start 10/04/16 at 09:00 Meclizine HCl (Antivert) 25 mg TID PRN PO DIZZINESS; Start 10/03/16 at 13:30 Sodium Biphosphate/ Sodium Phosphate (Fleet Enema) 133 ml ONCE CO ; Start at 15:30; Stop 10/03/16 at 16:30 DWAINE BLACK Oct 03, 2016 15:33
--- NOTE | 2016-10-03 17:29 | CONS ---
Date/Time of Note Date/Time of Note DATE: 10/03/16 TIME: 17:28 Assessment/Plan Assessment/Plan Additional Assessment/Plan Acute decompensated systolic and diastolic congestive heart failure Cardiomyopathy with ejection fraction 45% COPD Acute kidney injury, improving Obesity Hypertension Diabetes CVA UTI Encephalopathy, improved -Patient's congestive heart failure with progressive improvement. Blood pressure trend appears stable. Would continue aspirin, statin, beta-melinda. Patient started on low-dose CHRISTINA inhibitor yesterday. Monitor renal function, diuretics as per our renal colleagues. Consultation Date/Type/Reason Admit Date/Time Sep 27, 2016 at 08:55 Type of Consultation: cv 24 HR Interval Summary Free Text/Dictation Denies shortness of breath, still complaining of constipation Exam/Review of Systems Vital Signs Vitals Vital Signs Date Time Temp Pulse Resp B/P Pulse Ox O2 Delivery O2 Flow Rate FiO2 10/03/16 07:48 97.7 67 18 108/62 100 10/02/16 20:00 Nasal Cannula 2.0 Intake and Output 10/02/16 10/02/16 10/03/16 15:00 23:00 07:00 Intake Total 840 ml 650 ml Output Total 750 ml 750 ml Balance 90 ml -100 ml Exam No apparent distress Constitutional: alert, obese, oriented Head: normocephalic Respiratory: other (Coarse breath sounds bilaterally, no wheezing) Cardiovascular: other (S1-S2 heard), regular rate and rhythm Gastrointestinal: bowel sounds, non-tender, soft Extremities: edema Results Result Diagram: 09/30/16 1615 10/02/16 0611 Results 24 hrs Laboratory Tests Test 10/02/16 17:30 10/02/16 20:25 10/03/16 08:04 10/03/16 11:57 Bedside Glucose 86 152 153 130 Medications Medications Current Medications Metoclopramide HCl (Reglan) 10 mg Q6H PRN IV NAUSEA AND/OR VOMITING; Start at 03:30 Morphine Sulfate (morphine) 2 mg Q4H PRN IV PAIN LEVEL 7-10 Last administered on 10/03/16 12:56; Admin Dose 2 MG; Start 09/27/16 at 03:30 Heparin Sodium (Porcine) (Heparin (5000 Units/0.5 ml)) 5,000 unit Q8 SC Last administered on 10/03/16 15:11; Admin Dose 5,000 UNIT; Start 09/27/16 at 06:00 Miscellaneous Information 1 ea NOTE XX ; Start 09/27/16 at 04:00 Glucose (Glutose) 15 gm Q15M PRN PO DECREASED GLUCOSE; Start 09/27/16 at 04:00 Glucose (Glutose) 22.5 gm Q15M PRN PO DECREASED GLUCOSE; Start 09/27/16 at 04: 00 Dextrose (D50w Syringe) 25 ml Q15M PRN IV DECREASED GLUCOSE; Start 09/27/16 at 04:00 Dextrose (D50w Syringe) 50 ml Q15M PRN IV DECREASED GLUCOSE; Start 09/27/16 at 04:00 Glucagon (Glucagen) 1 mg Q15M PRN IM DECREASED GLUCOSE; Start 09/27/16 at 04:00 Glucose (Glutose) 15 gm Q15M PRN BUCCAL DECREASED GLUCOSE; Start 09/27/16 at 04 :00 Famotidine (Pepcid) 20 mg DAILY PO Last administered on 10/03/16 08:43; Admin Dose 20 MG; Start 09/27/16 at 09:00 Diagnostic Test (Pha) (Accu-Chek) 1 ea 02 XX ; Start 09/28/16 at 02:00 Atorvastatin Calcium (Lipitor) 80 mg QHS PO Last administered on 10/02/16 20: 27; Admin Dose 80 MG; Start 09/28/16 at 21:00 Sertraline HCl (Zoloft) 100 mg DAILY PO Last administered on 10/03/16 08:41; Admin Dose 100 MG; Start 09/29/16 at 09:00 Tiotropium [place] (Spiriva) 1 inh DAILY INH Last administered on 10/03/16 08: 40; Admin Dose 1 INH; Start 09/29/16 at 09:00 Salmeterol Xinafoate/ Fluticasone (Advair 250/50 Diskus) 1 inh BID INH Last administered on 10/03/16 08:40; Admin Dose 1 INH; Start 09/29/16 at 09:00 Levothyroxine Sodium (Synthroid) 175 mcg DAILY@06 PO Last administered on 05:59; Admin Dose 175 MCG; Start 09/29/16 at 06:00 Aspirin (Halfprin) 81 mg DAILY PO Last administered on 10/03/16 08:41; Admin Dose 81 MG; Start 09/29/16 at 09:00 Insulin Glargine (Lantus) 38 unit DAILY@08 SC Last administered on 10/03/16 08 :34; Admin Dose 38 UNIT; Start 10/01/16 at 08:00 Linagliptin (Tradjenta) 5 mg DAILY PO Last administered on 10/03/16 08:41; Admin Dose 5 MG; Start 09/30/16 at 14:00 Bisacodyl (Dulcolax) 5 mg DAILY PRN PO CONSTIPATION Last administered on 13:02; Admin Dose 5 MG; Start 10/02/16 at 17:00 Carvedilol (Coreg) 3.125 mg BID PO Last administered on 10/02/16 20:26; Admin Dose 3.125 MG; Start 10/02/16 at 21:00 Lisinopril (Zestril) 2.5 mg BID PO Last administered on 10/03/16 08:42; Admin Dose 2.5 MG; Start 10/02/16 at 21:00 Lisinopril (Zestril) 5 mg DAILY PO ; Start 10/04/16 at 09:00 Meclizine HCl (Antivert) 25 mg TID PRN PO DIZZINESS; Start 10/03/16 at 13:30 Jim Eduardo DO Oct 03, 2016 17:29
[2016-10-03] MEDS: ATORVASTATIN 80 MG TAB PO SCH (21:24)
[2016-10-03 21:58] VITALS: BP 132/58; RESP 18
[2016-10-04] MEDS: ACCU-CHEK XX SCH (02:00)
[2016-10-04 05:48] LABS: POTASSIUM 4.4 mmol/L (3.5-5.1)
[2016-10-04 05:51] LABS: CREATININE 1.66 mg/dl (0.44-1.00); PHOSPHORUS 4.6 mg/dl (2.5-4.9)
[2016-10-04 05:52] LABS: CALCIUM 8.5 mg/dl (8.4-10.2); MAGNESIUM 1.8 mg/dl (1.7-2.5)
[2016-10-04] MEDS: LEVOTHYROXINE 175 MCG TAB PO SCH (06:08)
[2016-10-04] MEDS: HEPARIN 5,000 UNIT/0.5 ML VIAL SC SCH (06:09)
[2016-10-04 07:42] VITALS: BP 120/53; RESP 18
[2016-10-04] MEDS: INSULIN ASPART [NOVOLOG] 3 ML PEN SC SCH ×4 (08:00→12:19)
[2016-10-04] MEDS: INSULIN GLARGINE [LANtus] 3 ML PEN SC SCH (08:13)
[2016-10-04] MEDS: TIOTROPIUM 18 MCG CAPSULE INHA DEV INH SCH (08:45)
[2016-10-04] MEDS: LINAGLIPTIN 5 MG TABLET PO SCH (08:47)
[2016-10-04] MEDS: LISINOPRIL 5 MG TAB PO SCH (08:47)
[2016-10-04] MEDS: ASPIRIN (EC) 81 MG TAB PO SCH (08:48)
[2016-10-04] MEDS: FAMOTIDINE 20 MG TAB PO SCH (08:48)
[2016-10-04] MEDS: SALMETEROL/FLUTICASONE 250/50 INHA INH SCH (08:49)
[2016-10-04] MEDS: SERTRALINE 100 MG TAB PO SCH (08:49)
[2016-10-04] MEDS ORDERED: LISINOPRIL 5 MG TAB PO SCH (09:00)
--- NOTE | 2016-10-04 11:58 | PN ---
Date/Time of Note Date/Time of Note DATE: 10/04/16 TIME: 11:56 Assessment/Plan VTE Prophylaxis VTE Prophylaxis Intervention: SCD's Lines/Catheters IV [facility] Saline Lock Urinary Cath still in place: Yes Reason Cath still needed: urinary retention Assessment/Plan Chief Complaint/Hosp Course ASSESSMENT AND PLAN: - Acute kidney injury on top of chronic kidney disease stage IV, resolved. Dr. Chen is following in nephrology consultation. Monitor BUN and creatinine. - Metabolic encephalopathy, resolved. - UTI per UA, continue Rocephin, follow up on cultures. - Poorly controlled Diabetes mellitus type 2, continue Lantus and NovoLog, started on linagliptin. - Acute on chronic systolic and diastolic congestive heart failure, continue Coreg. Dr. Eduardo is following patient from cardiology standpoint. - Cardiomyopathy with ejection fraction of 45% - COPD, continue Spiriva and Symbicort. - Hypothyroidism, TSH is 76.5. Patient was discharged home on Synthroid 175 mcg daily, however, I cannot see that medication on her current home medication. Patient is restarted on Synthroid. - Dyslipidemia, continue statin. - Status post CVA, continue aspirin. - Morbid obesity -Long-term tobacco user Further recommendations based on clinical course. Plan of care discussed with Dr. Lewis. Problems: Subjective 24 Hr Interval Summary Free Text/Dictation Patient had BM, still complains of occasional dizziness, prescription for Meclizine is on the chart when patient is ready to go home. Exam/Review of Systems Vital Signs Vitals Vital Signs Date Time Temp Pulse Resp B/P Pulse Ox O2 Delivery O2 Flow Rate FiO2 10/04/16 09:32 Nasal Cannula 2.0 10/04/16 07:42 97.5 60 18 120/53 98 Intake and Output 10/03/16 10/03/16 10/04/16 15:00 23:00 07:00 Intake Total 750 ml 550 ml Output Total 1000 ml 800 ml Balance -250 ml -250 ml Exam Constitutional: alert, obese, well developed Psych: confusion Head: atraumatic, normocephalic Eyes: nl conjunctiva ENMT: nl external ears & nose Neck: supple Respiratory: diminished breath sounds Cardiovascular: nl pulses, regular rate and rhythm Gastrointestinal: non-tender, soft Genitourinary - Female: other (Lerma catheter) Musculoskeletal: nl extremities to inspection Extremities: normal pulses 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: 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, confused Results Result Diagram: 09/30/16 1615 10/04/16 0420 Results 24 hrs Laboratory Tests Test 10/03/16 11:57 10/03/16 17:28 10/03/16 21:31 10/04/16 04:20 Bedside Glucose 130 99 94 Sodium Level 140 Potassium Level 4.4 Chloride Level 110 Carbon Dioxide Level 21 Anion Gap 13 Blood Urea Nitrogen 42 H Creatinine 1.66 H Glucose Level 112 Calcium Level 8.5 Phosphorus Level 4.6 Magnesium Level 1.8 Test 10/04/16 07:51 Bedside Glucose 121 Medications Medications Current Medications Metoclopramide HCl (Reglan) 10 mg Q6H PRN IV NAUSEA AND/OR VOMITING; Start at 03:30 Morphine Sulfate (morphine) 2 mg Q4H PRN IV PAIN LEVEL 7-10 Last administered on 10/03/16 21:58; Admin Dose 2 MG; Start 09/27/16 at 03:30 Heparin Sodium (Porcine) (Heparin (5000 Units/0.5 ml)) 5,000 unit Q8 SC Last administered on 10/04/16 06:09; Admin Dose 5,000 UNIT; Start 09/27/16 at 06:00 Miscellaneous Information 1 ea NOTE XX ; Start 09/27/16 at 04:00 Glucose (Glutose) 15 gm Q15M PRN PO DECREASED GLUCOSE; Start 09/27/16 at 04:00 Glucose (Glutose) 22.5 gm Q15M PRN PO DECREASED GLUCOSE; Start 09/27/16 at 04: 00 Dextrose (D50w Syringe) 25 ml Q15M PRN IV DECREASED GLUCOSE; Start 09/27/16 at 04:00 Dextrose (D50w Syringe) 50 ml Q15M PRN IV DECREASED GLUCOSE; Start 09/27/16 at 04:00 Glucagon (Glucagen) 1 mg Q15M PRN IM DECREASED GLUCOSE; Start 09/27/16 at 04:00 Glucose (Glutose) 15 gm Q15M PRN BUCCAL DECREASED GLUCOSE; Start 09/27/16 at 04 :00 Famotidine (Pepcid) 20 mg DAILY PO Last administered on 10/04/16 08:48; Admin Dose 20 MG; Start 09/27/16 at 09:00 Diagnostic Test (Pha) (Accu-Chek) 1 ea 02 XX ; Start 09/28/16 at 02:00 Atorvastatin Calcium (Lipitor) 80 mg QHS PO Last administered on 10/03/16 21: 24; Admin Dose 80 MG; Start 09/28/16 at 21:00 Sertraline HCl (Zoloft) 100 mg DAILY PO Last administered on 10/04/16 08:49; Admin Dose 100 MG; Start 09/29/16 at 09:00 Tiotropium [place] (Spiriva) 1 inh DAILY INH Last administered on 10/04/16 08: 45; Admin Dose 1 INH; Start 09/29/16 at 09:00 Salmeterol Xinafoate/ Fluticasone (Advair 250/50 Diskus) 1 inh BID INH Last administered on 10/04/16 08:49; Admin Dose 1 INH; Start 09/29/16 at 09:00 Levothyroxine Sodium (Synthroid) 175 mcg DAILY@06 PO Last administered on 06:08; Admin Dose 175 MCG; Start 09/29/16 at 06:00 Aspirin (Halfprin) 81 mg DAILY PO Last administered on 10/04/16 08:48; Admin Dose 81 MG; Start 09/29/16 at 09:00 Insulin Glargine (Lantus) 38 unit DAILY@08 SC Last administered on 10/04/16 08 :13; Admin Dose 38 UNIT; Start 10/01/16 at 08:00 Linagliptin (Tradjenta) 5 mg DAILY PO Last administered on 10/04/16 08:47; Admin Dose 5 MG; Start 09/30/16 at 14:00 Bisacodyl (Dulcolax) 5 mg DAILY PRN PO CONSTIPATION Last administered on 13:02; Admin Dose 5 MG; Start 10/02/16 at 17:00 Carvedilol (Coreg) 3.125 mg BID PO Last administered on 10/04/16 08:49; Admin Dose 3.125 MG; Start 10/02/16 at 21:00 Lisinopril (Zestril) 2.5 mg BID PO Last administered on 10/04/16 08:47; Admin Dose 2.5 MG; Start 10/02/16 at 21:00 Lisinopril (Zestril) 5 mg DAILY PO Last administered on 10/04/16t 08:48; Admin Dose 5 MG; Start 10/04/16 at 09:00 Meclizine HCl (Antivert) 25 mg TID PRN PO DIZZINESS; Start 10/03/16 at 13:30 Furosemide (Lasix) 20 mg DAILY PO ; Start 10/05/16 at 09:00 DWAINE BLACK Oct 04, 2016 11:58
--- NOTE | 2016-10-04 12:29 | PN ---
DATE: 10/04/2016 SUBJECTIVE: The patient is stable, no events overnight. No fevers, chills, nausea, vomiting. No s hortness breath. OBJECTIVE: VITAL SIGNS: Blood pressure 120/53, respirations 18, pulse 60, temperature 97.5. HEENT: Head is normocephalic. NECK: Supple. HEART: Regular rate. LUNGS: Show diminished breath sounds at the bases. ABDOMEN: Soft, nontender to palpation. No rebound or guarding. EXTREMITIES: Negative for clubbing, cyanosis. Trace edema. DERMATOLOGIC: No rashes. MUSCULOSKELETAL: No joint effusions. NEUROLOGIC: No change in exam. MEDICATIONS: The patient's medications have been reviewed. LABORATORY DATA: Shows sodium 140, potassium 4.4, BUN 42, creatinine 1.66. White count 5.1, hemogl obin 10.5, hematocrit 32.3, platelet count 183. ASSESSMENT AND PLAN: 1. Nonoliguric acute kidney injury on top of chronic kidney disease stage IV with a previous baseli ne creatinine of 2.5 to 3 mg/dL. Etiology secondary to hemodynamics, volume depletion. The patient 's renal function has stabilized. The patient has been reintroduced on low-dose CHRISTINA inhibitor, purvi nopril 5 mg daily. We will also restart Lasix 20 mg daily. Monitor renal function closely. 2. Anemia. Continue to monitor hemoglobin and hematocrit levels. 3. Mineral bone disorder. Continue to monitor calcium and phosphorus levels. 4. Acute congestive heart failure exacerbation. The patient is clinically euvolemic. We will rein troduce CHRISTINA inhibitor and Lasix. Monitor renal function. Follow up with cardiology colleagues for further recommendations. 5. Diabetes. Continue Accu-Cheks and insulin sliding scale. 6. History of chronic obstructive pulmonary disease. 7. Urinary tract infection. The patient is completing antibiotic course. 8. Hypothyroidism. Continue Synthroid. 9. History of cerebrovascular accident. Dictated By: MARGIE ARRIOLA/TOMMY Conf#: [id number] DID#: [id number]
[2016-10-04] MEDS: morphine 2 MG INJ IV PRN (13:47)
[2016-10-05] MEDS ORDERED: FUROSEMIDE 20 MG TAB PO SCH (09:00)
== END 2016-10-04 14:40 | disposition home health service (06) | DRG 291 ==
LOC: E/R 19:17 → MS4 09-27 08:55 → PP2 10-01 00:55
PROVIDERS: ADMIT Internal Medicine; ATTEND Internal Medicine
DX: I13.0 Hypertensive heart and chronic kidney disease with heart failure and stage 1 through stage 4 chronic kidney disease, or unspecified chronic kidney disease (principal); I50.43 Acute on chronic combined systolic (congestive) and diastolic (congestive) heart failure; N18.4 Chronic kidney disease, stage 4 (severe); E11.22 Type 2 diabetes mellitus with diabetic chronic kidney disease; E11.65 Type 2 diabetes mellitus with hyperglycemia; N17.9 Acute kidney failure, unspecified; N39.0 Urinary tract infection, site not specified; N12 Tubulo-interstitial nephritis, not specified as acute or chronic; E87.1 Hypo-osmolality and hyponatremia; Z68.42 Body mass index [BMI] 45.0-49.9, adult; E87.5 Hyperkalemia; R19.7 Diarrhea, unspecified; E66.01 Morbid (severe) obesity due to excess calories; Z72.0 Tobacco use; R42 Dizziness and giddiness; R51 Headache; J44.9 Chronic obstructive pulmonary disease, unspecified
CPT/HCPCS: 36415; 70450; 71010; 76775; 80048; 80053; 81001; 81003; 82043; 82962; 83036; 83690; 83735; 84100; 84155; 84300; 84443; 84484; 85025; 87040; 87086; 93005; 96361; 96372; 96374; 96375; 96376; 97162; J0692; J1644; J1815; J2270; J2405; J7030; P9047

== ENCOUNTER 2017-11-09 05:45 | Emergency (ER) | END 2017-11-09 10:15 | disposition short-term general hospital (02) ==